=== PATIENT | male | born 1965 | race Caucasian/White ===

== ENCOUNTER 2017-03-16 15:18 | Emergency (ER) | payer MEDICAID ==
[~2017-03-16] VITALS: Ht 170.2 cm; Wt 89.3 kg
[~2017-03-16 15:18] MED LIST: CYCL-319 PO; HYDR-3498 PO; NAPR-260 PO
[2017-03-16 15:25] VITALS: Ht 170.2 cm; Wt 89.3 kg
[2017-03-16] MEDS ORDERED: KETOROLAC 30 MG INJ IV STA (16:24)
[2017-03-16] MEDS ORDERED: SOD CHLORIDE 0.9% 500 ML IV STA (16:24)
[2017-03-16] MEDS ORDERED: CEFTRIAXONE 1 GM/50 ML (PMX) 50 ML IVPB ONE (16:30)
[2017-03-16 17:13] LABS: BASOPHILS % 0.2 % (0.0-2.0); EOSINOPHILS # 0.1 10^3/ul (0.0-0.5); EOSINOPHILS % 0.5 % (0.0-7.0); HEMATOCRIT 46.6 % (42.0-52.0); LYMPHOCYTES # 0.8 10^3/ul (0.8-2.9); LYMPHOCYTES % 8.4 % (15.0-51.0); MEAN CORPUSCULAR HEMOGLOBIN 31.5 pg (29.0-33.0); MEAN CORPUSCULAR HGB CONC 34.3 g/dl (32.0-37.0); MEAN CORPUSCULAR VOLUME 91.7 fl (82.0-101.0); MEAN PLATELET VOLUME 10.2 fl (7.4-10.4); MONOCYTE # 1.2 10^3/ul (0.3-0.9); MONOCYTES % 12.2 % (0.0-11.0); NEUTROPHIL # 7.8 10^3/ul (1.6-7.5); NEUTROPHILS % 78.2 % (39.0-77.0); PLATELET COUNT 213 10^3/UL (140-415); RED BLOOD COUNT 5.08 10^6/ul (4.70-6.10); RED CELL DISTRIBUTION WIDTH 12.4 % (11.5-14.5)
--- NOTE | 2017-03-16 17:18 | RADRPT ---
PROCEDURE: XR Chest. CLINICAL INDICATION: Shortness of breath. TECHNIQUE: PA erect view of the chest was obtained. COMPARISON: 02/11/2015 FINDINGS: The cardiomediastinal silhouette is within normal limits. Infiltrate within the lingula is present unable to exclude pneumonia. The right lung is clear. There is no evidence for pleural effusion, pn eumothorax or pulmonary vascular congestion. The osseous structures are intact with no evidence for acute abnormality. RPTAT:HJJR IMPRESSION: Lingular infiltrate unable to exclude pneumonia in the proper clinical setting. Correlation with cou gh and fever is recommended. Consider short-term follow-up evaluation after therapy. Physician Krystyna Date Time Electronically viewed and signed by Physician Krystyna on 03/16/2017 17:17 /
[2017-03-16 17:21] LABS: ADD UMIC YES; UR ASCORBIC ACID NEGATIVE (NEGATIVE); UR BILIRUBIN (Dip) NEGATIVE (NEGATIVE); UR BLOOD (Dip) 3+ mg/dL (NEGATIVE); UR CLARITY CLEAR (CLEAR); UR COLOR YELLOW (YELLOW); UR GLUCOSE (Dip) NEGATIVE (NEGATIVE); UR KETONES (Dip) 1+ mg/dL (NEGATIVE); UR LEUKOCYTE ESTERASE (Dip) NEGATIVE Leu/ul (NEGATIVE); UR MUCUS FEW /HPF (NONE SEEN); UR NITRITE (Dip) NEGATIVE (NEGATIVE); UR RBC 26 /HPF (0-5); UR SPECIFIC GRAVITY (Dip) 1.019 (1.003-1.030); UR TOTAL PROTEIN (Dip) NEGATIVE (NEGATIVE); UR UROBILINOGEN (Dip) 1+ mg/dL (NEGATIVE)
[2017-03-16] MEDS ORDERED: ALBUTEROL/IPRATROPIUM (NEB) 3 ML AMP HHN STA (17:35)
[2017-03-16 17:38] LABS: CALCIUM 9.4 mg/dl (8.4-10.2); CREATININE 1.1 mg/dl (0.61-1.24); POTASSIUM 4.2 mmol/L (3.5-5.1)
--- NOTE | 2017-03-16 17:44 | ERD ---
ER Documentation Chief Complaint Chief Complaint chest pain, headache, neck pain radiating to left arm x2 days HPI 48 y/o male patient with no significant medical history, presents to the emergency department with his c/o gradual onset of fever, headache, cough sharp chest pain for the last 2 days. The pain is rated 6/10, radiated to his back. The symptoms are probably caused by a cold and are associated with general malaise. Aggravating factors: Exertion in cold weather. Alleviating factors: Resting. Denies palpitations, shortness of breath, dizziness, no chills , N/V/D. No history of previous episodes. Treatment attempted: Known. Previous evaluation: Known. History was given by patient ROS SYSTEMIC symptoms: fever, no chills, no night sweats, no weight loss EYE symptoms: No blurred vision, no eye discharge OTOLARYNGEAL symptoms: No hearing loss. No ear pain, no sore throat CARDIOVASCULAR symptoms: Sharp chest pain or discomfort, no palpitations. PULMONARY symptoms: No dyspnea, dry constant cough, no wheezing. GASTROINTESTINAL symptoms: No abdominal pain, no nausea, no vomiting, no diarrhea MUSCULOSKELETAL symptoms: No arthralgias, no muscle aches. NEUROLOGY symptoms: No confusion, no syncope, no numbness or tingling. SKIN: No rashes Medications Home Meds Active Scripts Ibuprofen* (Ibuprofen*) 600 Mg Tablet, 600 MG PO Q8 Y for pain and/or fever, # 20 TAB Prov:BELLE PUGH MD 03/16/17 Albuterol Sulfate* (Proair HFA*) 8.5 Gm Hfa.aer.ad, 2 PUFF INH Q6H Y for WHEEZING AND SOB, #1 INHALER Prov:BELLE PUGH MD 03/16/17 Azithromycin* (Zithromax*) 250 Mg Tablet, 250 MG PO .ZPACK DIRECTED, #6 TAB TAKE 500 MG (2 TABS) THE FIRST DAY THEN 250 MG (1 TAB) DAYS 2-5 Prov:BELLE PUGH MD 03/16/17 Amoxicillin/Potassium Clav (Amox-Clav 875-125 mg Tablet) 875-125 mg Tab, 1 TAB PO BID for 7 Days, #14 TAB Prov:BELLE PUGH MD 03/16/17 Hydrocodone Bit-Acetaminophen* ([place]*) 5-325 Mg Tab, 1 TAB PO Q6 Y for PAIN, # 11 TAB Prov:ENRRIQUE GAMEZ DO 02/11/15 Cyclobenzaprine Hcl* (Cyclobenzaprine Hcl*) 10 Mg Tablet, 10 MG PO TID, #15 TAB Prov:ENRRIQUE GAMEZ DO 02/11/15 Naproxen* (Naprosyn*) 500 Mg Tablet, 500 MG PO BID Y for PAIN AND/OR INFLAMMATION, #20 TAB Prov:ENRRIQUE GAMEZ DO 02/11/15 Allergies Allergies: Coded Allergies: No Known Allergy (Unverified , 02/11/15) PMhx/Soc Denies history of hypertension, diabetes, coronary artery disease. Hx Neurological Disorder: No Hx Respiratory Disorders: No Hx Cardiac Disorders: No Hx Psychiatric Problems: No Hx Miscellaneous Medical Probl: No Hx Alcohol Use: No Hx Substance Use: No Hx Tobacco Use: No Physical Exam Vitals Vital Signs Date Time Temp Pulse Resp B/P Pulse Ox O2 Delivery O2 Flow Rate FiO2 03/16/17 17:52 102 19 96 21 03/16/17 17:23 99.6 93 20 123/65 96 Room Air 03/16/17 16:57 Nasal Cannula 03/16/17 15:25 102.1 114 18 120/78 97 Physical Exam Patient is in mild distress, vital signs showed a tachycardic patient, febrile. Alert and fully oriented. EYES: PERRLA, EOMI, Sclera and conjunctiva appear normal. EARS: Bilateral tympanic membranes erythematous, opaque THROAT: Erythematous oropharynx. NECK: Supple, No lymphadenopathy. Full ROM without pain or tenderness. HEART: RRR, no rubs, murmurs, clicks or gallops. LUNGS: Bilateral rhonchi with left expiratory wheezing ABDOMEN: Soft, non-tender without masses or hepatosplenomegaly. EXTREMITIES: No edema bilaterally. BACK: Full ROM, no deformity, normal back exam NEURO: Cranial nerves grossly intact, no motor or sensory deficit Result Diagram: 03/16/17 1645 03/16/17 1645 Results 24 hrs Laboratory Tests Test 03/16/17 16:40 03/16/17 16:45 Urine Color YELLOW Urine Clarity CLEAR Urine pH 5.0 Urine Specific [place] 1.019 Urine Ketones 1+mg/dL Urine Nitrite NEGATIVEmg/dL Urine Bilirubin NEGATIVEmg/dL Urine Urobilinogen 1+mg/dL Urine Leukocyte Esterase NEGATIVELeu/ul Urine Microscopic RBC 26/HPF Urine Microscopic WBC 1/HPF Urine Mucus FEW/HPF Urine Hemoglobin 3+mg/dL Urine Glucose NEGATIVEmg/dL Urine Total Protein NEGATIVEmg/dl White Blood Count 10.010^3/ul Red Blood Count 5.0810^6/ul Hemoglobin 16.0g/dl Hematocrit 46.6% Mean Corpuscular Volume 91.7fl Mean Corpuscular Hemoglobin 31.5pg Mean Corpuscular Hemoglobin Concent 34.3g/dl Red Cell Distribution Width 12.4% Platelet Count 34404^3/UL Mean Platelet Volume 10.2fl Neutrophils % 78.2% Lymphocytes % 8.4% Monocytes % 12.2% Eosinophils % 0.5% Basophils % 0.2% Nucleated Red Blood Cells % 0.0/100WBC Neutrophils # 7.810^3/ul Lymphocytes # 0.810^3/ul Monocytes # 1.210^3/ul Eosinophils # 0.110^3/ul Basophils # 0.010^3/ul Nucleated Red Blood Cells # 0.010^3/ul Sodium Level 139mmol/L Potassium Level 4.2mmol/L Chloride Level 97mmol/L Carbon Dioxide Level 30mmol/L Anion Gap 16 Blood Urea Nitrogen 12mg/dl Creatinine 1.10mg/dl Glucose Level 104mg/dl Lactic Acid Level 1.3mmol/L Calcium Level 9.4mg/dl Current Medications Medications (Trade) Dose Ordered Sig/Keshia Route PRN Reason Start Time Stop Time Status Last Admin Dose Admin Sodium Chloride (NS) 500 ml @ 500 mls/hr Q1H STAT IV 03/16/17 16:24 03/16/17 17:23 DC 03/16/17 16:55 Ketorolac Tromethamine 30 mg 30 mg ONCE STAT IV 03/16/17 16:24 03/16/17 16:30 DC 03/16/17 16:55 Ceftriaxone Sodium (Rocephin) 50 ml @ 100 mls/hr ONCE ONCE IVPB 03/16/17 16:30 03/16/17 16:59 DC 03/16/17 16:57 Albuterol/ Ipratropium (Duoneb) 3 ml ONCE STAT HHN 03/16/17 17:35 03/16/17 17:36 DC 03/16/17 17:49 [place] [id number] Radiology Main Line: [phone] DIAGNOSTIC IMAGING REPORT Patient: GLORIA MOSQUEDA : 1965 Age: 51 Sex: M MR #: [id number] DOS: 03/16/17 1624 Ordering MD: BELLE PUGH MD Location: [facility]TE Room/Bed: PROCEDURE: XR Chest. CLINICAL INDICATION: Shortness of breath. TECHNIQUE: PA erect view of the chest was obtained. COMPARISON: 02/11/2015 FINDINGS: The cardiomediastinal silhouette is within normal limits. Infiltrate within the lingula is present unable to exclude pneumonia. The right lung is clear. There is no evidence for pleural effusion, pneumothorax or pulmonary vascular congestion. The osseous structures are intact with no evidence for acute abnormality. RPTAT:HJJR IMPRESSION: Lingular infiltrate unable to exclude pneumonia in the proper clinical setting. Correlation with cough and fever is recommended. Consider short-term follow-up evaluation after therapy. Physician Krystyna Date Time Electronically viewed and signed by Physician Krystyna on 03/16/2017 17:17 JR/ CC: BELLE PUGH MD Procedures/MDM 51y/o male patient previously healthy, presents to the ED c/o fever cough and general malaise for 3 days. Vital signs stable, Physical exam revealed a tachycardic patient, febrile, with abnormal respiratory sounds in left lung. Differential diagnosis include but not limited to: Respiratory infection bacterial/viral/fungal. Asthma/COPD, pneumonitis, allergies, GERD. Less likely foreign body aspiration, cardiac related, aspiration pneumonia, malignancy. Pertinent Data: 12 Lead ECG: Sinus rhythm, no ST changes, normal T wave, normal intervals Labs: CBC: normal, CMP: normal kidney and liver function, normal electrolytes. Lactic acid: 1.3 UA: Hematuria but no infection Radiology: Chest XR IMPRESSION: Lingular infiltrate unable to exclude pneumonia in the proper clinical setting. Correlation with cough and fever is recommended. Consider short-term follow-up evaluation after therapy. Physical examination and clinical presentation consistent most likely with lingular pneumonia and hematuria. During the ED course the patient received treatment with IV fluids, Rocephin, respiratory therapy and Toradol presenting overall improvement of the symptoms. Results and clinical impression discussed with patient who agrees with management. The patient is stable to be treated outpatient and will be discharged home with a Rx for Augmentin, azithromycin, pro-air and ibuprofen Side effects of prescribed medications (headache, rash, nausea, vomiting, diarrhea) were reviewed. Side effects of prescribed opiates (drowsiness, habituation) were reviewed. Side effects of prescribed NSAID medication (GI distress, edema, bleeding, HTN) were reviewed. The patient was instructed to follow up with the primary care provider in the next 48h. If symptoms persist, worsen or new symptoms develop, then patient should return to the ED immediately. Instructions explained and given to patient in [place] with acknowledgment and demonstrated understanding. Disclaimer: Inadvertent spelling and grammatical errors are likely due to EHR/ dictation software use and do not reflect on the overall quality of patient care. Also, please note that the electronic time recorded on this note does not necessarily reflect the actual time of the patient encounter. Departure Diagnosis: Primary Impression: Pneumonia Additional Impression: Hematuria Condition: Stable Additional Instructions: Muchas ronald por [facility] para gonzalez servicio. Esperamos que en gonzalez visita a la michael de emergencia gonzalez problema medico haya sido solucionado y que se sienta mucho mejor. Para estar seguros que gonzalez mejoria sigue en proceso, le pedimos el favor de hacer lori jennifer de seguimiento medico con gonzalez doctor primario en los proximos 2-4 gudino. Lleve con usted estos documentos y las medicinas recetadas. Si juan sintomas empeoran y no puede kiko a gonzalez doctor, por favor regrese a michael de emergencia. En bakari que usted no tenga un mdico de atencin primaria: Llame al mdico o clnica comunitaria de referencia que aparece abajo vera las horas de consultorio para hacer lori jennifer para que le vean. CLINICAS: [place] [id number] [phone] [facility] [phone] [facility] [phone] [facility]. [place] [id number] [phone] [facility]. [place] [id number] [phone] [facility]. [phone] BELLE LEONE MD Mar 16, 2017 17:44
[2017-03-16] MEDS ORDERED: AMOX1TAB10 PO (18:06)
[2017-03-16] MEDS ORDERED: IBUP-1542 PO (18:06)
[2017-03-16] MEDS ORDERED: AZIT250T94 PO (18:06)
[2017-03-16] MEDS ORDERED: ALBU8.5H3 INH (18:06)
[2017-03-16 19:41] VITALS: BP 125/72; PULSE 90; RESP 16; TEMP 99.1
== END 2017-03-16 19:45 | disposition home or self-care (01) ==
LOC: FTE 15:18
DX: J18.9 Pneumonia, unspecified organism (principal); R31.9 Hematuria, unspecified
CPT/HCPCS: 71010; 80048; 81001; 83605; 85025; 87040; 94664; J0696; J1885; J7040; Z7610; 36415; 96374; 96375

== ENCOUNTER 2017-04-19 16:19 | Emergency (ER) | END 2017-04-19 22:45 | disposition home or self-care (01) ==

== ENCOUNTER 2017-11-30 11:33 | Emergency (ER) | END 2017-11-30 15:08 | disposition home or self-care (01) ==

== ENCOUNTER 2018-06-25 10:12 | Inpatient (IN) | payer MEDICAID ==
[2018-06-25] VITALS (24 sets, daily range): BP systolic 92–127; BP diastolic 52–69; PULSE 72–90; RESP 14–21; Ht 167.6 cm; Wt 84.8 kg
[~2018-06-25] VITALS: Ht 167.6 cm; Wt 84.8 kg
[~2018-06-25 10:12] MED LIST changes: +ACET500C5 PO; +ALBU18HF INHALATION; +ALBU8.5H8 INH; +AMOX1TAB10 PO; +AZIT250T PO; -CYCL-319 PO; +CYCL10TA7 PO; +IBUP-1542 PO; +INHA1SPA53 MC; +IPRA15SP NS; -NAPR-260 PO; +NAPR-985 PO; +PRED20TA PO
[2018-06-25] MEDS ORDERED: SODIUM CHLORIDE 0.9% 1L BAG IV* STA (10:31)
[2018-06-25] MEDS ORDERED: ONDANSETRON 4 MG INJ IV STA ×2 (10:31→11:23)
[2018-06-25] MEDS ORDERED: morphine 4 MG/ML VIAL IV STA (10:31)
[2018-06-25] MEDS ORDERED: PIPER-TAZO 3.375 GM IV (PMX) 100 ML IVPB STA (10:31)
[2018-06-25] MEDS ORDERED: ACETAMINOPHEN 325 MG TAB PO STA (10:31)
[2018-06-25] MEDS ORDERED: HYDROmorphONE 1 MG/ML SYG IV STA (11:23)
--- NOTE | 2018-06-25 11:54 | ERD ---
ER Documentation Chief Complaint Chief Complaint Right lower abdominal pain, no BM 2 days HPI 52-year-old gentleman who presents to the emergency room with 24 hours of right lower quadrant abdominal discomfort. Patient describes generalized vague pain that is now localized to the right lower quadrant with associated anorexia, naus ea. Pain is 9 out of 10. Low-grade fever noted at triage. Prior abdominal surgical histories. ROS All systems reviewed and are negative except as per history of present illness. Medications Home Meds Active Scripts Cyclobenzaprine Hcl* (Cyclobenzaprine Hcl*) 10 Mg Tablet, 10 MG PO QHS, #7 TAB Prov:OSKAR NATHAN PA-C 11/30/17 Prednisone* (Prednisone*) 20 Mg Tab, 40 MG PO DAILY for 4 Days, TAB Prov:OSKAR NATHAN PA-C 11/30/17 Naproxen* (Naprosyn*) 500 Mg Tablet, 500 MG PO BID PRN for PAIN AND/OR INFLAMMATION, #30 TAB Prov:OSKAR NATHAN PA-C 11/30/17 Ipratropium [place] (Ipratropium [place]) 15 Ml [place], 15 ML NS TID for 7 Days, SPRAY Prov:JOSEFINA,TERA 04/19/17 Ibuprofen* (Motrin*) 600 Mg Tab, 600 MG PO Q6, #30 TAB Prov:JOSEFINA,TERA 04/19/17 Acetaminophen* (Tylophen*) 500 Mg Capsule, 2 CAP PO Q8H PRN for PAIN AND OR ELEVATED TEMP, #20 CAP Prov:JOSEFINA,TERA 04/19/17 Inhaler, Assist Devices (E-Z SPACER) 1 Each Spacer, 1 EACH MC, #1 Prov:JOSEFINA,TERA 04/19/17 Albuterol Sulfate* (Ventolin HFA*) 18 Gm Hfa.aer.ad, 2 PUFF INHALATION Q4H, #1 INHALER Prov:JOSEFINA,TERA 04/19/17 Ibuprofen* (Ibuprofen*) 600 Mg Tablet, 600 MG PO Q8 PRN for pain and/or fever, #20 TAB Prov:BELLE PUGH MD 03/16/17 Albuterol Sulfate* (Proair HFA*) 8.5 Gm Hfa.aer.ad, 2 PUFF INH Q6H PRN for WHEEZING AND SOB, #1 INHALER Prov:BELLE PUGH MD 03/16/17 Azithromycin* (Zithromax*) 250 Mg Tablet, 250 MG PO .ZPACK DIRECTED, #6 TAB TAKE 500 MG (2 TABS) THE FIRST DAY THEN 250 MG (1 TAB) DAYS 2-5 Prov:BELLE PUGH MD 03/16/17 Amoxicillin/Potassium Clav (Amox-Clav 875-125 mg Tablet) 875-125 mg Tab, 1 TAB PO BID for 7 Days, #14 TAB Prov:BELLE PUGH MD 03/16/17 Hydrocodone Bit-Acetaminophen* ([place]*) 5-325 Mg Tab, 1 TAB PO Q6 PRN for PAIN, #11 TAB Prov:ENRRIQUE GAMEZ DO 02/11/15 Cyclobenzaprine Hcl* (Cyclobenzaprine Hcl*) 10 Mg Tablet, 10 MG PO TID, #15 TAB Prov:ENRRIQUE GAMEZ DO 02/11/15 Naproxen* (Naprosyn*) 500 Mg Tablet, 500 MG PO BID PRN for PAIN AND/OR I NFLAMMATION, #20 TAB Prov:ENRRIQUE GAMEZ DO 02/11/15 Allergies Allergies: Coded Allergies: No Known Allergy (Unverified , 02/11/15) PMhx/Soc Medical and Surgical Hx: pt denies Medical Hx, pt denies Surgical Hx History of Surgery: No Anesthesia Reaction: No Hx Neurological Disorder: No Hx Respiratory Disorders: No Hx Cardiac Disorders: No Hx Psychiatric Problems: No Hx Miscellaneous Medical Probl: No Hx Alcohol Use: No Hx Substance Use: No Hx Tobacco Use: No Smoking Status: Never smoker FmHx Family History: No diabetes Physical Exam Vitals Vital Signs Date Temp Pulse Resp B/P (MAP) Pulse Ox O2 O2 Flow FiO2 Time Delivery Rate 06/25/18 99.7 81 16 124/75 100 Room Air 11:55 (91) 06/25/18 100.4 10:49 06/25/18 Nasal 2 10:30 Cannula 06/25/18 100.2 98 18 112/52 98 10:15 (72) Physical Exam General: Uncomfortable Head: Normocephalic, atraumatic. Eyes: Pupils equally reactive, EOM intact ENT: Moist mucous membranes Neck: Supple, no lymphadenopathy Respiratory: Lungs clear bilaterally, no distress Cardiovascular: Tachycardia, no murmurs, rubs, or gallops Abdominal: Focal tenderness to the right lower quadrant at McBurney's point with voluntary guarding : Deferred MSK: No edema, no unilateral swelling, 5/5 strength Neurologic: Alert and oriented, moving all extremities, normal speech, no focal weakness, no cerebellar signs Skin: No rash Psych: Normal mood Result Diagram: 06/25/18 1042 06/25/18 1042 Results 24 hrs Laboratory Tests Test 06/25/18 10:42 06/25/18 12:16 White Blood Count 15.8 10^3/ul Red Blood Count 5.05 10^6/ul Hemoglobin 15.9 g/dl Hematocrit 46.5 % Mean Corpuscular Volume 92.1 fl Mean Corpuscular Hemoglobin 31.5 pg Mean Corpuscular Hemoglobin Concent 34.2 g/dl Red Cell Distribution Width 12.3 % Platelet Count 249 10^3/UL Mean Platelet Volume 10.5 fl Immature Granulocytes % 0.800 % Neutrophils % 85.7 % Lymphocytes % 4.7 % Monocytes % 8.6 % Eosinophils % 0.0 % Basophils % 0.2 % Nucleated Red Blood Cells % 0.0 /100WBC Immature Granulocytes # 0.130 10^3/ul Neutrophils # 13.5 10^3/ul Lymphocytes # 0.7 10^3/ul Monocytes # 1.4 10^3/ul Eosinophils # 0.0 10^3/ul Basophils # 0.0 10^3/ul Nucleated Red Blood Cells # 0.0 10^3/ul Prothrombin Time 13.3 Sec Prothrombin Time Ratio 1.0 INR International Normalized Ratio 1.00 Activated Partial Thromboplast Time 31.2 Sec Urine Color STRAW Urine Clarity CLEAR Urine pH 8.0 Urine Specific [place] 1.003 Urine Ketones NEGATIVE mg/dL Urine Nitrite NEGATIVE mg/dL Urine Bilirubin NEGATIVE mg/dL Urine Urobilinogen NEGATIVE mg/dL Urine Leukocyte Esterase NEGATIVE [place]/ul Urine Microscopic RBC 2 /HPF Urine Microscopic WBC 1 /HPF Urine Hemoglobin 2+ mg/dL Urine Glucose NEGATIVE mg/dL Urine Total Protein NEGATIVE mg/dl Sodium Level 137 mmol/L Potassium Level 3.7 mmol/L Chloride Level 96 mmol/L Carbon Dioxide Level 25 mmol/L Anion Gap 16 Blood Urea Nitrogen 9 mg/dl Creatinine 0.86 mg/dl Est Glomerular Filtrat Rate mL/min > 60 mL/min Glucose Level 148 mg/dl Lactic Acid Level 4.6 mmol/L 1.6 mmol/L Calcium Level 9.1 mg/dl Total Bilirubin 1.6 mg/dl Direct Bilirubin 0.00 mg/dl Indirect Bilirubin 1.6 mg/dl Aspartate Amino Transf (AST/SGOT) 23 IU/L Alanine Aminotransferase (ALT/SGPT) 27 IU/L Alkaline Phosphatase 82 IU/L Total Protein 7.8 g/dl Albumin 4.3 g/dl Globulin 3.50 g/dl Albumin/Globulin Ratio 1.22 Lipase 219 U/L Current Medications Medications Dose Sig/Keshia Start Time Status Last (Trade) Ordered Route PRN Stop Time Admin Dose Reason Admin Sodium 2,730 ml BOLUS OVER 2 06/25/18 DC 06/25/18 Chloride HOURS STAT 10:31 06/25/18 10:44 (NS) IV* 10:33 650 mg ONCE STAT 06/25/18 DC 06/25/18 Acetaminophen PO 10:31 06/25/18 10:49 (Tylenol 10:33 Tab) Morphine 4 mg ONCE STAT 06/25/18 DC 06/25/18 Sulfate IV 10:31 06/25/18 10:46 (morphine) 10:33 Ondansetron 4 mg ONCE STAT 06/25/18 DC 06/25/18 HCl (Zofran IV 10:31 06/25/18 10:46 Inj) 10:33 Piperacillin 100 ml @ ONCE STAT 06/25/18 DC 06/25/18 Sod/ 200 mls/hr IVPB 10:31 06/25/18 10:46 Tazobactam 11:00 Sod 1 mg ONCE STAT 06/25/18 DC 06/25/18 Hydromorphone IV 11:23 06/25/18 11:33 HCl 11:24 (Dilaudid) Ondansetron 4 mg ONCE STAT 06/25/18 DC 06/25/18 HCl (Zofran IV 11:23 06/25/18 11:33 Inj) 11:24 Ondansetron 4 mg ER BRIDGE 06/25/18 HCl (Zofran PRN IV 12:00 06/26/18 Inj) NAUSEA/VOMITI 11:59 NG 650 mg ER BRIDGE 06/25/18 Acetaminophen PRN PO 12:00 06/26/18 (Tylenol .MILD PAIN 11:59 Tab) 1-3 OR TEMP IV Flush 3 ml PER 06/25/18 (NS 3 ml) PROTOCOL IV 13:00 Ondansetron 4 mg Q6H PRN 06/25/18 HCl (Zofran IV 13:00 Inj) NAUSEA/VOMITI NG 650 mg Q6H PRN 06/25/18 Acetaminophen PO .PAIN 1-3 13:00 (Tylenol OR TEMP Tab) 1 tab Q6H PRN 06/25/18 Acetaminophen PO .MOD PAIN 13:00 / 4-6 Hydrocodone Bitart ([place] (5/325)) Morphine 2 mg Q4H PRN 06/25/18 Sulfate IV .SEVERE 13:00 (morphine) PAIN 7-10 Docusate 100 mg Q12H PRN 06/25/18 Sodium PO 13:00 (Colace) .CONSTIPATION Magnesium 30 ml DAILY PRN 06/25/18 Hydroxide PO 13:00 (Milk Of Mag) .CONSTIPATION Heparin 5,000 unit Q12 SC 06/25/18 Sodium 21:00 (Porcine) (Heparin (5000 Units/1ml)) Sodium 1,000 ml @ [id number] IV 06/25/18 Chloride 75 mls/hr 12:41 Lorazepam 0.5 mg Q6H PRN 06/25/18 (Ativan) IV ANXIETY 13:00 Albuterol/ 3 ml Q4H RESP 06/25/18 Ipratropium THERAPY PRN 13:00 (Duoneb) HHN SHORTNESS OF BREATH Piperacillin 100 ml @ Q6 IVPB 06/25/18 Sod/ 200 mls/hr 18:00 Tazobactam Sod Hydralazine 10 mg Q6H PRN 06/25/18 HCl IV ELEVATED 13:00 (Apresoline) BLOOD PRESSURE 1 tab Q5M PRN 06/25/18 Nitroglycerin SL ANGINA 13:00 (Nitroglyceri n (Sl Tab) 0.4 Mg) Albuterol 2 puff Q6H PRN 06/25/18 (Ventolin INH WHEEZING 13:00 Hfa) AND SOB Procedures/MDM EKG, MONITORS, & DIAGNOSTIC IMAGING: EKG: I reviewed and interpreted a 12-lead EKG. Rhythm: Normal sinus rhythm ST Changes: No contiguous ST segment elevations T waves: No contiguous T wave inversions Impression: No evidence of acute cardiac ischemia CXR IMPRESSION: No evidence of congestive heart or pneumonia. RPTAT:AAJJ CT abdomen and pelvis: 1. Acute appendicitis as described above without free air abscess. 2. Bilateral nonobstructing small renal calcified calculi more numerous on the left. 3. No obstructive uropathy bilaterally. 4. Anterior mid left renal 1.7 cm cyst. 5. Umbilical and left inguinal fat-containing hernias without herniated bowel or strangulation. Addendum: Dr. Amin that was telephoned of these results on 06/25/2018 and 1110 hours. LAB INTERPRETATION: I reviewed the laboratory testing and it shows leukocytosis and lactic acid elevation MEDICAL DECISION MAKING: Patient presents with migratory pain to the right lower quadrant, anorexia and fever. This is very consistent with acute appendicitis. The patient also may meet criteria for sepsis. Sepsis screening to be initiated. Code sepsis initiated. ER COURSE: * Blood cultures prior to antibiotics. Zosyn provided. Antibiotics provided * The patient's lactic acid is significantly elevated consistent with severe sepsis and potential for septic shock. The patient's blood pressure is holding stable. No indication for central line or pressors. This is likely to respond with fluid resuscitation. * CT imaging confirms acute appendicitis. General surgeon communications coordinator, Dr. Crespo notified. * The patient's repeat lactic acid is pending. I do not believe the patient requires central line. CONSULTATION: General surgery: Dr. Crespo DISPOSITION PLAN: Patient can be downgraded to [facility] given improved lactic acid Accepting care team and consultations: I discussed the current laboratory data, diagnostic imaging and emergency care provided. Admitting team: Dr. Persaud Admitting team indication: Insurance directed Sepsis Documentation: Patient's infectious symptoms have not stabilized and the patient is at risk of rapid decompensation. The patient will be admitted for careful hydration, antibiotic therapy, and infectious source control. SEVERE SEPSIS CRITERIA: Infectious source: Acute appendicitis End organ damage indicated by: [Lactate > 2.0 mmol/L SEPSIS MANAGEMENT Time of recognition of sepsis: Upon MD assessment. Time of recognition of severe sepsis: Upon the lactic acid result around 11:15 AM Time of recognition of septic shock: Upon lactic acid result around 11:15 AM. 3 HOUR BUNDLE Blood cultures x 2 before broad-spectrum antibiotics: Yes 30 ml/kg NS bolus pending completion at 11:51 AM, almost complete Initial lactate greater than 4 Repeat lactate 1.6 SEPTIC SHOCK ASSESSMENT: Yes: lactic acid > 4.0 No persistent hypotension (SBP < 90 or 40 mmHg drop, MAP < 65) despite 30 mL/kg IV fluid bolus VOLUME REASSESSMENT FOR SEPTIC SHOCK: Reevaluation Time: 12:55 PM Temperature of 99.7 heart rate 81 respiratory rate 16 blood pressure 124/75 and pulse ox 100% on room air Heart regular rate & rhythm Lungs no crackles Skin warm & dry Cap Refill less than 2 seconds Peripheral pulses radially present PERSISTENT HYPOTENSION TREATMENT: Comfort care no Central line not Required Vasopressor started not required I considered further perfusion assessment with CVP measurement, SCVO2, bedside ultrasound volume assessment, passive leg raise, trial of further fluid bolus. And proceeded with 30 ml/kg fluid bolus of NSS, broad spectrum antibiotics, and admission. CRITICAL CARE Critical care time 40 minutes Emergent fluid management while maintaining close respiratory support. Provision of immediate and broad-spectrum antibiotic therapy. Simultaneous assessment for possible sources in order to direct targeted therapy. Consideration for invasive and chemical support to prevent cardiopulmonary collapse. Critical care time is independent of procedures performed. Departure Diagnosis: Primary Impression: Abdominal pain Abdominal location: right lower quadrant Qualified Codes: R10.31 - Right lower quadrant pain Additional Impressions: Acute appendicitis Acute appendicitis type: with localized peritonitis Appendicitis gangrene presence: without gangrene Appendicitis perforation presence: without perforation Appendicitis abscess presence: without abscess Qualified Codes: K35.30 - Acute appendicitis with localized peritonitis, without perforation or gangrene Septic shock Condition: Stable SANDRA AMIN MD Jun 25, 2018 11:54
[2018-06-25] MEDS ORDERED: ACETAMINOPHEN 325 MG TAB PO PRN ×2 (12:00→13:00)
[2018-06-25] MEDS ORDERED: ONDANSETRON 4 MG INJ IV PRN ×5 (12:00→18:30)
[2018-06-25] MEDS: SOD CHLORIDE 0.45% 1,000 ML IV SCH ×2 (12:41→21:00)
[2018-06-25] MEDS ORDERED: NITROGLYCERIN (SL) 0.4 MG TAB SL PRN (13:00)
[2018-06-25] MEDS ORDERED: NACL 0.9% 3 ML SYG IV SCH (13:00)
[2018-06-25] MEDS ORDERED: HYDROCODONE/APAP (5/325) TAB PO PRN (13:00)
[2018-06-25] MEDS ORDERED: MAGNESIUM HYDROXIDE 30ML CUP PO PRN (13:00)
[2018-06-25] MEDS ORDERED: LORAZEPAM 2 MG INJ IV PRN (13:00)
[2018-06-25] MEDS ORDERED: ALBUTEROL HFA 8 GM INHALER INH PRN (13:00)
[2018-06-25] MEDS ORDERED: hydrALAzine 20 MG INJ IV PRN ×2 (13:00→18:30)
[2018-06-25] MEDS ORDERED: ALBUTEROL/IPRATROPIUM (NEB) 3 ML AMP HHN PRN (13:00)
--- NOTE | 2018-06-25 14:36 | HP ---
Date/Time of Note Date/Time of Note DATE: 06/25/18 TIME: 14:34 Assessment/Plan VTE Prophylaxis SCD applied (from Nsg): No SCD contraindicated: other Pharmacological prophylaxis: heparin Lines/Catheters IV Catheter Type (from Nrsg): [place] Assessment/Plan Hospital Course Assessment and plan: 52-year-old male who presents with abdominal pain secondary to acute appendicitis. #Abdominal pain: Secondary to acute appendicitis. -Continue n.p.o. status, IV fluids, low-dose IV antibiotic -Follow-up surgery recommendations #Possible asthma: DuoNeb's as needed Result Diagram: 06/25/18 1042 06/25/18 1042 Results 24hrs Laboratory Tests Test 06/25/18 10:42 06/25/18 12:16 White Blood Count 15.8 #H Red Blood Count 5.05 Hemoglobin 15.9 Hematocrit 46.5 Mean Corpuscular Volume 92.1 Mean Corpuscular Hemoglobin 31.5 Mean Corpuscular Hemoglobin Concent 34.2 Red Cell Distribution Width 12.3 Platelet Count 249 Mean Platelet Volume 10.5 H Immature Granulocytes % 0.800 H Neutrophils % 85.7 H Lymphocytes % 4.7 L Monocytes % 8.6 Eosinophils % 0.0 Basophils % 0.2 Nucleated Red Blood Cells % 0.0 Immature Granulocytes # 0.130 H Neutrophils # 13.5 H Lymphocytes # 0.7 L Monocytes # 1.4 H Eosinophils # 0.0 Basophils # 0.0 Nucleated Red Blood Cells # 0.0 Prothrombin Time 13.3 Prothrombin Time Ratio 1.0 INR International Normalized Ratio 1.00 Activated Partial Thromboplast Time 31.2 Urine Color STRAW Urine Clarity CLEAR Urine pH 8.0 Urine Specific [place] 1.003 Urine Ketones NEGATIVE Urine Nitrite NEGATIVE Urine Bilirubin NEGATIVE Urine Urobilinogen NEGATIVE Urine Leukocyte Esterase NEGATIVE Urine Microscopic RBC 2 Urine Microscopic WBC 1 Urine Hemoglobin 2+ H Urine Glucose NEGATIVE Urine Total Protein NEGATIVE Sodium Level 137 Potassium Level 3.7 Chloride Level 96 L Carbon Dioxide Level 25 Anion Gap 16 H Blood Urea Nitrogen 9 Creatinine 0.86 Est Glomerular Filtrat Rate mL/min > 60 Glucose Level 148 Lactic Acid Level 4.6 *H 1.6 Calcium Level 9.1 Total Bilirubin 1.6 H Direct Bilirubin 0.00 Indirect Bilirubin 1.6 H Aspartate Amino Transf (AST/SGOT) 23 Alanine Aminotransferase (ALT/SGPT) 27 Alkaline Phosphatase 82 Total Protein 7.8 Albumin 4.3 Globulin 3.50 H Albumin/Globulin Ratio 1.22 Lipase 219 Free Thyroxine 1.14 HPI/ROS Admit Date/Time Admit Date/Time Hx of Present Illness 52-year-old male past medical history of questionable asthma, who complains of right lower quadrant abdominal pain. Symptoms have been going on for the last 24 hours. Patient describes generalized vague pain that is now localized to the right lower quadrant with associated anorexia, nausea. Patient stated the pain was 9 out of 10 in intensity. When the patient came in low-grade fever noted at triage. No prior history of any surgeries, no upper or lower GI bleeding, diarrhea constipation, headaches or dizziness. When he came in today he had CT scan abdomen pelvis performed that showed acute appendicitis as described above without free air abscess. Surgery team was called to come consult on the patient PMH/Family/Social Past Medical History Medications Current Medications Ondansetron HCl (Zofran Inj) 4 mg ER BRIDGE PRN IV NAUSEA/VOMITING; Start 06/25/18 at 12:00; Stop 06/26/18 at 11:59 Acetaminophen (Tylenol Tab) 650 mg ER BRIDGE PRN PO .MILD PAIN 1-3 OR TEMP; Start 06/25/18 at 12:00; Stop 06/26/18 at 11:59 IV Flush (NS 3 ml) 3 ml PER PROTOCOL IV ; Start 06/25/18 at 13:00 Ondansetron HCl (Zofran Inj) 4 mg Q6H PRN IV NAUSEA/VOMITING; Start 06/25/18 at 13:00 Acetaminophen (Tylenol Tab) 650 mg Q6H PRN PO .PAIN 1-3 OR TEMP; Start 06/25/18 at 13:00 Acetaminophen/ Hydrocodone Bitart ([place] (5/325)) 1 tab Q6H PRN PO .MOD PAIN 4- 6; Start 06/25/18 at 13:00 Morphine Sulfate (morphine) 2 mg Q4H PRN IV .SEVERE PAIN 7-10; Start 06/25/18 at 13:00 Docusate Sodium (Colace) 100 mg Q12H PRN PO .CONSTIPATION; Start 06/25/18 at 13:00 Magnesium Hydroxide (Milk Of Mag) 30 ml DAILY PRN PO .CONSTIPATION; Start at 13:00 Heparin Sodium (Porcine) (Heparin (5000 Units/1ml)) 5,000 unit Q12 SC ; Start 06/25/18 at 21:00 Sodium Chloride 1,000 ml @ 75 mls/hr [id number] IV ; Start 06/25/18 at 12:41 Lorazepam (Ativan) 0.5 mg Q6H PRN IV ANXIETY; Start 06/25/18 at 13:00 Albuterol/ Ipratropium (Duoneb) 3 ml Q4H RESP THERAPY PRN HHN SHORTNESS OF BREATH; Start 06/25/18 at 13:00 Piperacillin Sod/ Tazobactam Sod 100 ml @ 200 mls/hr Q6 IVPB ; Start 06/25/18 at 18:00 Hydralazine HCl (Apresoline) 10 mg Q6H PRN IV ELEVATED BLOOD PRESSURE; Start 06/25/18 at 13:00 Nitroglycerin (Nitroglycerin (Sl Tab) 0.4 Mg) 1 tab Q5M PRN SL ANGINA; Start 06/25/18 at 13:00 Albuterol (Ventolin Hfa) 2 puff Q6H PRN INH WHEEZING AND SOB; Start 06/25/18 at 13:00 Coded Allergies: No Known Allergy (Unverified , 02/11/15) Past Surgical History Past Surgical Hx: no surgical history Social History Alcohol Use: none Smoking Status: Never smoker Drug Use: none Exam/Review of Systems Vital Signs Vitals Vital Signs Date Temp Pulse Resp B/P (MAP) Pulse Ox O2 O2 Flow FiO2 Time Delivery Rate 06/25/18 80 16 121/73 99 Room Air 13:34 (89) 06/25/18 99.7 11:55 06/25/18 2 10:30 Exam Exam General: Lying in bed, mild distress Head: Normocephalic, atraumatic. Eyes: Pupils equally reactive, EOM intact ENT: Moist mucous membranes Neck: Supple, no lymphadenopathy Respiratory: Lungs clear bilaterally, no distress Cardiovascular: S1, S2 heard Abdominal: Some positive tenderness to the right lower quadrant with voluntary guarding MSK: No edema lower extremity bilaterally Neurologic: No focal deficits CHRISTIANO CRANDALL Jun 25, 2018 14:36
--- NOTE | 2018-06-25 15:17 | CONS ---
Assessment/Plan Assessment/Plan Assessment/Plan (Daily) Acute appendicitis Laparoscopic appendectomy, possible open. I have discussed the procedure, outcomes, alternatives and risks in detail with the patient who has an excellent understanding of the nature of his situation and agrees to the proposed plan of therapy as outlined. Consultation Date/Type/Reason Admit Date/Time Date of Consultation: Jun 25, 2018 Type of Consult General surgery Reason for Consultation Acute appendicitis Date/Time of Note DATE: 06/25/18 TIME: 15:15 Hx of Present Illness The patient is an otherwise healthy 52-year-old gentleman who presents with a one day history of abdominal pain which intensified in severity than localized to the right lower quadrant. In the emergency room he was noted to have a tender right lower quadrant, an elevated white blood cell count, and a CT compatible with acute appendicitis. Constitutional: no complaints Eyes: no complaints ENT: no complaints Respiratory: no complaints Cardiovascular: no complaints Gastrointestinal: pain (Right lower quadrant) Genitourinary: no complaints Musculoskeletal: no complaints Skin: no complaints Neurologic: no complaints Endocrine: no complaints Lymphatic: no complaints Past Medical History Medical History: no pertinent history Home Meds Active Scripts Cyclobenzaprine Hcl* (Cyclobenzaprine Hcl*) 10 Mg Tablet, 10 MG PO QHS, #7 TAB Prov:OSKAR NATHAN PA-C 11/30/17 Prednisone* (Prednisone*) 20 Mg Tab, 40 MG PO DAILY for 4 Days, TAB Prov:OSKAR NATHAN PA-C 11/30/17 Naproxen* (Naprosyn*) 500 Mg Tablet, 500 MG PO BID PRN for PAIN AND/OR INFLAMMATION, #30 TAB Prov:OSKAR NATHAN PA-C 11/30/17 Ipratropium [place] (Ipratropium [place]) 15 Ml [place], 15 ML NS TID for 7 Days, SPRAY Prov:JOSEFINA,TERA 04/19/17 Ibuprofen* (Motrin*) 600 Mg Tab, 600 MG PO Q6, #30 TAB Prov:JOSEFINA,TERA 04/19/17 Acetaminophen* (Tylophen*) 500 Mg Capsule, 2 CAP PO Q8H PRN for PAIN AND OR ELEVATED TEMP, #20 CAP Prov:JOSEFINA,TERA 04/19/17 Inhaler, Assist Devices (E-Z SPACER) 1 Each Spacer, 1 EACH MC, #1 Prov:JOSEFINA,TERA 04/19/17 Albuterol Sulfate* (Ventolin HFA*) 18 Gm Hfa.aer.ad, 2 PUFF INHALATION Q4H, #1 INHALER Prov:JOSEFINA,TERA 04/19/17 Ibuprofen* (Ibuprofen*) 600 Mg Tablet, 600 MG PO Q8 PRN for pain and/or fever, #20 TAB Prov:BELLE PUGH MD 03/16/17 Albuterol Sulfate* (Proair HFA*) 8.5 Gm Hfa.aer.ad, 2 PUFF INH Q6H PRN for WHEEZING AND SOB, #1 INHALER Prov:BELLE PUGH MD 03/16/17 Azithromycin* (Zithromax*) 250 Mg Tablet, 250 MG PO .ZPACK DIRECTED, #6 TAB TAKE 500 MG (2 TABS) THE FIRST DAY THEN 250 MG (1 TAB) DAYS 2-5 Prov:BELLE PUGH MD 03/16/17 Amoxicillin/Potassium Clav (Amox-Clav 875-125 mg Tablet) 875-125 mg Tab, 1 TAB P O BID for 7 Days, #14 TAB Prov:BELLE PUGH MD 03/16/17 Hydrocodone Bit-Acetaminophen* ([place]*) 5-325 Mg Tab, 1 TAB PO Q6 PRN for PAIN, #11 TAB Prov:ENRRIQUE GAMEZ DO 02/11/15 Cyclobenzaprine Hcl* (Cyclobenzaprine Hcl*) 10 Mg Tablet, 10 MG PO TID, #15 TAB Prov:ENRRIQUE GAMEZ DO 02/11/15 Naproxen* (Naprosyn*) 500 Mg Tablet, 500 MG PO BID PRN for PAIN AND/OR INFLAMMATION, #20 TAB Prov:ENRRIQUE GAMEZ DO 02/11/15 Medications Current Medications Ondansetron HCl (Zofran Inj) 4 mg ER BRIDGE PRN IV NAUSEA/VOMITING; Start 06/25/18 at 12:00; Stop 06/26/18 at 11:59 Acetaminophen (Tylenol Tab) 650 mg ER BRIDGE PRN PO .MILD PAIN 1-3 OR TEMP; Start 06/25/18 at 12:00; Stop 06/26/18 at 11:59 IV Flush (NS 3 ml) 3 ml PER PROTOCOL IV ; Start 06/25/18 at 13:00 Ondansetron HCl (Zofran Inj) 4 mg Q6H PRN IV NAUSEA/VOMITING; Start 06/25/18 at 13:00 Acetaminophen (Tylenol Tab) 650 mg Q6H PRN PO .PAIN 1-3 OR TEMP; Start 06/25/18 at 13:00 Acetaminophen/ Hydrocodone Bitart ([place] (5/325)) 1 tab Q6H PRN PO .MOD PAIN 4- 6; Start 06/25/18 at 13:00 Morphine Sulfate (morphine) 2 mg Q4H PRN IV .SEVERE PAIN 7-10; Start 06/25/18 at 13:00 Docusate Sodium (Colace) 100 mg Q12H PRN PO .CONSTIPATION; Start 06/25/18 at 13:00 Magnesium Hydroxide (Milk Of Mag) 30 ml DAILY PRN PO .CONSTIPATION; Start 06/25/18 at 13:00 Heparin Sodium (Porcine) (Heparin (5000 Units/1ml)) 5,000 unit Q12 SC ; Start 06/25/18 at 21:00 Sodium Chloride 1,000 ml @ 75 mls/hr [id number] IV ; Start 06/25/18 at 12:41 Lorazepam (Ativan) 0.5 mg Q6H PRN IV ANXIETY; Start 06/25/18 at 13:00 Albuterol/ Ipratropium (Duoneb) 3 ml Q4H RESP THERAPY PRN HHN SHORTNESS OF BREATH; Start 06/25/18 at 13:00 Piperacillin Sod/ Tazobactam Sod 100 ml @ 200 mls/hr Q6 IVPB ; Start 06/25/18 at 18:00 Hydralazine HCl (Apresoline) 10 mg Q6H PRN IV ELEVATED BLOOD PRESSURE; Start 06/25/18 at 13:00 Nitroglycerin (Nitroglycerin (Sl Tab) 0.4 Mg) 1 tab Q5M PRN SL ANGINA; Start 06/25/18 at 13:00 Albuterol (Ventolin Hfa) 2 puff Q6H PRN INH WHEEZING AND SOB; Start 06/25/18 at 13:00 Allergies: Coded Allergies: No Known Allergy (Unverified , 02/11/15) Past Surgical History Past Surgical Hx: no surgical history Family History Significant Family History: no pertinent family hx Social History Smoking Status: Never smoker Exam/Review of Systems Exam Vitals Vital Signs Date Temp Pulse Resp B/P (MAP) Pulse Ox O2 O2 Flow FiO2 Time Delivery Rate 06/25/18 98.1 90 20 127/69 94 Room Air 15:06 (88) 06/25/18 2 10:30 Constitutional: alert, oriented Psych: no complaints Head: normocephalic Eyes: nl conjunctiva ENMT: nl external ears & nose Neck: supple Respiratory: clear to auscultation Cardiovascular: regular rate and rhythm Gastrointestinal: tender (Tender right lower quadrant with guarding but no rebound) Genitourinary - Male: nl penis Musculoskeletal: nl extremities to inspection Extremities: normal pulses Neurological: ROUSTABOUT II-XII intact Skin: nl turgor Results Result Diagram: 06/25/18 1042 06/25/18 1042 Results 24hrs Laboratory Tests Test 06/25/18 10:42 06/25/18 12:16 White Blood Count 15.8 #H Red Blood Count 5.05 Hemoglobin 15.9 Hematocrit 46.5 Mean Corpuscular Volume 92.1 Mean Corpuscular Hemoglobin 31.5 Mean Corpuscular Hemoglobin Concent 34.2 Red Cell Distribution Width 12.3 Platelet Count 249 Mean Platelet Volume 10.5 H Immature Granulocytes % 0.800 H Neutrophils % 85.7 H Lymphocytes % 4.7 L Monocytes % 8.6 Eosinophils % 0.0 Basophils % 0.2 Nucleated Red Blood Cells % 0.0 Immature Granulocytes # 0.130 H Neutrophils # 13.5 H Lymphocytes # 0.7 L Monocytes # 1.4 H Eosinophils # 0.0 Basophils # 0.0 Nucleated Red Blood Cells # 0.0 Prothrombin Time 13.3 Prothrombin Time Ratio 1.0 INR International Normalized Ratio 1.00 Activated Partial Thromboplast Time 31.2 Urine Color STRAW Urine Clarity CLEAR Urine pH 8.0 Urine Specific [place] 1.003 Urine Ketones NEGATIVE Urine Nitrite NEGATIVE Urine Bilirubin NEGATIVE Urine Urobilinogen NEGATIVE Urine Leukocyte Esterase NEGATIVE Urine Microscopic RBC 2 Urine Microscopic WBC 1 Urine Hemoglobin 2+ H Urine Glucose NEGATIVE Urine Total Protein NEGATIVE Sodium Level 137 Potassium Level 3.7 Chloride Level 96 L Carbon Dioxide Level 25 Anion Gap 16 H Blood Urea Nitrogen 9 Creatinine 0.86 Est Glomerular Filtrat Rate mL/min > 60 Glucose Level 148 Lactic Acid Level 4.6 *H 1.6 Calcium Level 9.1 Total Bilirubin 1.6 H Direct Bilirubin 0.00 Indirect Bilirubin 1.6 H Aspartate Amino Transf (AST/SGOT) 23 Alanine Aminotransferase (ALT/SGPT) 27 Alkaline Phosphatase 82 Total Protein 7.8 Albumin 4.3 Globulin 3.50 H Albumin/Globulin Ratio 1.22 Lipase 219 Free Thyroxine 1.14 Medications Medication Current Medications Ondansetron HCl (Zofran Inj) 4 mg ER BRIDGE PRN IV NAUSEA/VOMITING; Start 06/25/18 at 12:00; Stop 06/26/18 at 11:59 Acetaminophen (Tylenol Tab) 650 mg ER BRIDGE PRN PO .MILD PAIN 1-3 OR TEMP; Start 06/25/18 at 12:00; Stop 06/26/18 at 11:59 IV Flush (NS 3 ml) 3 ml PER PROTOCOL IV ; Start 06/25/18 at 13:00 Ondansetron HCl (Zofran Inj) 4 mg Q6H PRN IV NAUSEA/VOMITING; Start 06/25/18 at 13:00 Acetaminophen (Tylenol Tab) 650 mg Q6H PRN PO .PAIN 1-3 OR TEMP; Start 06/25/18 at 13:00 Acetaminophen/ Hydrocodone Bitart ([place] (5/325)) 1 tab Q6H PRN PO .MOD PAIN 4- 6; Start 06/25/18 at 13:00 Morphine Sulfate (morphine) 2 mg Q4H PRN IV .SEVERE PAIN 7-10; Start 06/25/18 at 13:00 Docusate Sodium (Colace) 100 mg Q12H PRN PO .CONSTIPATION; Start 06/25/18 at 13:00 Magnesium Hydroxide (Milk Of Mag) 30 ml DAILY PRN PO .CONSTIPATION; Start at 13:00 Heparin Sodium (Porcine) (Heparin (5000 Units/1ml)) 5,000 unit Q12 SC ; Start 06/25/18 at 21:00 Sodium Chloride 1,000 ml @ 75 mls/hr [id number] IV ; Start 06/25/18 at 12:41 Lorazepam (Ativan) 0.5 mg Q6H PRN IV ANXIETY; Start 06/25/18 at 13:00 Albuterol/ Ipratropium (Duoneb) 3 ml Q4H RESP THERAPY PRN HHN SHORTNESS OF BREATH; Start 06/25/18 at 13:00 Piperacillin Sod/ Tazobactam Sod 100 ml @ 200 mls/hr Q6 IVPB ; Start 06/25/18 at 18:00 Hydralazine HCl (Apresoline) 10 mg Q6H PRN IV ELEVATED BLOOD PRESSURE; Start 06/25/18 at 13:00 Nitroglycerin (Nitroglycerin (Sl Tab) 0.4 Mg) 1 tab Q5M PRN SL ANGINA; Start 06/25/18 at 13:00 Albuterol (Ventolin Hfa) 2 puff Q6H PRN INH WHEEZING AND SOB; Start 06/25/18 at 13:00 MATTHIAS LALA MD Jun 25, 2018 15:17
[2018-06-25] MEDS ORDERED: BUPIVACAINE 0.5%/EPI (SDV) 30 ML INJ ONE (16:49)
--- NOTE | 2018-06-25 16:50 | PREAC ---
Date/Time of Note Date/Time of Note DATE: 06/25/18 TIME: 16:48 Anesthesia Eval and Record Evaluation Time Pre-Procedure Interview DATE: 06/25/18 TIME: 16:48 Age 52 Sex male NPO: 8 hrs Preoperative diagnosis appendicitis Planned procedure laparoscopic appendectomy Past Medical History Past Medical History: Includes GI: Obesity Surgery & Anesthesia Issues No known issue Meds Anticoagulation: No Beta Asif within 24 hr: No Reason Beta Asif not given: Pt. not on B-Asif Active Scripts Cyclobenzaprine Hcl* (Cyclobenzaprine Hcl*) 10 Mg Tablet, 10 MG PO QHS, #7 TAB Prov:OSKAR NATHAN PA-C 11/30/17 Prednisone* (Prednisone*) 20 Mg Tab, 40 MG PO DAILY for 4 Days, TAB Prov:OSKAR NATHAN PA-C 11/30/17 Naproxen* (Naprosyn*) 500 Mg Tablet, 500 MG PO BID PRN for PAIN AND/OR INFL AMMATION, #30 TAB Prov:OSKAR NATHAN PA-C 11/30/17 Ipratropium [place] (Ipratropium [place]) 15 Ml [place], 15 ML NS TID for 7 Days, SPRAY Prov:JOSEFINA,TERA 04/19/17 Ibuprofen* (Motrin*) 600 Mg Tab, 600 MG PO Q6, #30 TAB Prov:JOSEFINA,TERA 04/19/17 Acetaminophen* (Tylophen*) 500 Mg Capsule, 2 CAP PO Q8H PRN for PAIN AND OR ELEVATED TEMP, #20 CAP Prov:JOSEFINA,TERA 04/19/17 Inhaler, Assist Devices (E-Z SPACER) 1 Each Spacer, 1 EACH MC, #1 Prov:JOSEFINA,TERA 04/19/17 Albuterol Sulfate* (Ventolin HFA*) 18 Gm Hfa.aer.ad, 2 PUFF INHALATION Q4H, #1 INHALER Prov:JOSEFINA,TERA 04/19/17 Ibuprofen* (Ibuprofen*) 600 Mg Tablet, 600 MG PO Q8 PRN for pain and/or fever, #20 TAB Prov:BELLE PUGH MD 03/16/17 Albuterol Sulfate* (Proair HFA*) 8.5 Gm Hfa.aer.ad, 2 PUFF INH Q6H PRN for WHEEZING AND SOB, #1 INHALER Prov:BELLE PUGH MD 03/16/17 Azithromycin* (Zithromax*) 250 Mg Tablet, 250 MG PO .ZPACK DIRECTED, #6 TAB TAKE 500 MG (2 TABS) THE FIRST DAY THEN 250 MG (1 TAB) DAYS 2-5 Prov:BELLE PUGH MD 03/16/17 Amoxicillin/Potassium Clav (Amox-Clav 875-125 mg Tablet) 875-125 mg Tab, 1 TAB PO BID for 7 Days, #14 TAB Prov:BELLE PUGH MD 03/16/17 Hydrocodone Bit-Acetaminophen* ([place]*) 5-325 Mg Tab, 1 TAB PO Q6 PRN for PAIN, #11 TAB Prov:ENRRIQUE GAMEZ DO 02/11/15 Cyclobenzaprine Hcl* (Cyclobenzaprine Hcl*) 10 Mg Tablet, 10 MG PO TID, #15 TAB Prov:ENRRIQUE GAMEZ DO 02/11/15 Naproxen* (Naprosyn*) 500 Mg Tablet, 500 MG PO BID PRN for PAIN AND/OR INFLAMMATION, #20 TAB Prov:ENRRIQUE GAMEZ DO 02/11/15 Current Medications IV Flush (NS 3 ml) 3 ml PER PROTOCOL IV ; Start 06/25/18 at 13:00 Ondansetron HCl (Zofran Inj) 4 mg Q6H PRN IV NAUSEA/VOMITING; Start 06/25/18 at 13:00 Acetaminophen (Tylenol Tab) 650 mg Q6H PRN PO .PAIN 1-3 OR TEMP; Start 06/25/18 at 13:00 Acetaminophen/ Hydrocodone Bitart ([place] (5/325)) 1 tab Q6H PRN PO .MOD PAIN 4- 6; Start 06/25/18 at 13:00 Morphine Sulfate (morphine) 2 mg Q4H PRN IV .SEVERE PAIN 7-10; Start 06/25/18 at 13:00 Docusate Sodium (Colace) 100 mg Q12H PRN PO .CONSTIPATION; Start 06/25/18 at 13:00 Magnesium Hydroxide (Milk Of Mag) 30 ml DAILY PRN PO .CONSTIPATION; Start 06/25/18 at 13:00 Heparin Sodium (Porcine) (Heparin (5000 Units/1ml)) 5,000 unit Q12 SC ; Start 06/25/18 at 21:00 Sodium Chloride 1,000 ml @ 75 mls/hr [id number] IV ; Start 06/25/18 at 12:41 Lorazepam (Ativan) 0.5 mg Q6H PRN IV ANXIETY; Start 06/25/18 at 13:00 Albuterol/ Ipratropium (Duoneb) 3 ml Q4H RESP THERAPY PRN HHN SHORTNESS OF BREATH; Start 06/25/18 at 13:00 Piperacillin Sod/ Tazobactam Sod 100 ml @ 200 mls/hr Q6 IVPB ; Start 06/25/18 at 18:00 Hydralazine HCl (Apresoline) 10 mg Q6H PRN IV ELEVATED BLOOD PRESSURE; Start 06/25/18 at 13:00 Nitroglycerin (Nitroglycerin (Sl Tab) 0.4 Mg) 1 tab Q5M PRN SL ANGINA; Start 06/25/18 at 13:00 Albuterol (Ventolin Hfa) 2 puff Q6H PRN INH WHEEZING AND SOB; Start 06/25/18 at 13:00 Oxycodone/ Acetaminophen (Percocet (5/ 325)) 1 tab Q4H PRN PO .MILD PAIN (1-3); Start 06/25/18 at 17:00 Oxycodone/ Acetaminophen (Percocet (5/ 325)) 2 tab Q4H PRN PO .MODERATE PAIN (4-6); Start 06/25/18 at 17:00 Morphine Sulfate (morphine) 2 mg ONCE PRN IV .SEVERE PAIN 7-10; Start 06/25/18 at 17:00; Stop 06/25/18 at 23:00 Ondansetron HCl (Zofran Inj) 4 mg Q6H PRN IV NAUSEA/VOMITING; Start 06/25/18 at 17:00 Meds reviewed: Yes Allergies Coded Allergies: No Known Allergy (Unverified , 02/11/15) Allergies Reviewed: Yes Labs/Studies Labs Reviewed: Reviewed by anesthesiologist Result Diagram: 06/25/18 1042 06/25/18 1042 Laboratory Tests 06/25/18 10:42 test: N/A Pre-procedure Exam Last vitals Vital Signs Date Temp Pulse Resp B/P (MAP) Pulse Ox O2 O2 Flow FiO2 Time Delivery Rate 06/25/18 98.1 90 20 127/69 94 Room Air 15:06 (88) 06/25/18 2 10:30 Airway: Adequate mouth opening, Adequate thyromental dist Mallampati: Mallampati II Teeth: Normal Lung: Normal Heart: Normal ASA Physical Status ASA physical status: 2 Emergency: E Planned Anesthetic General/MAC: ETT Planned Pain Management Parenteral pain med Pre-operative Attestations Prior to commencing anesthesia and surgery, the patient was re-evaluated, there was verification of: *The patient's identity *The results of appropriate recent lab work and preoperative vital signs *The above evaluation not changing prior to induction *Anesthetic plan, risk benefits, alternative and complications discussed with patient/family; questions answered; patient/family understands, accepts and wishes to proceed. KITTY PAREDES Jun 25, 2018 16:49
[2018-06-25] MEDS ORDERED: ROCURONIUM 50 MG INJ ONE (16:59)
[2018-06-25] MEDS ORDERED: PROPOFOL 20 ML ONE (16:59)
[2018-06-25] MEDS ORDERED: OXYCODONE/ACETAMINOPHEN (5/325) TAB PO PRN ×5 (17:00→18:30)
[2018-06-25] MEDS ORDERED: morphine 2 MG INJ IV PRN ×2 (17:00→18:00)
[2018-06-25] MEDS ORDERED: SUCCINYLCHOLINE CHLORIDE 100 MG/5 ML SYG IV ONE (17:00)
[2018-06-25] MEDS ORDERED: ONDANSETRON 4 MG INJ ONE ×2 (17:19→17:42)
[2018-06-25] MEDS ORDERED: DEXAMETHASONE 4 MG/ML 5 ML INJ ONE (17:19)
[2018-06-25] MEDS ORDERED: NEOSTIGMINE 10 MG INJ ONE (17:42)
[2018-06-25] MEDS ORDERED: GLYCOPYRROLATE 0.4 MG INJ ONE (17:42)
[2018-06-25] MEDS ORDERED: LABETALOL HCL 20MG INJ ONE (17:50)
[2018-06-25] MEDS: PIPER-TAZO 3.375 GM IV (PMX) 100 ML IVPB SCH ×2 (18:00→23:46)
--- NOTE | 2018-06-25 18:00 | OPR ---
Date/Time of Note Date/Time of Note DATE: 06/25/18 TIME: 17:53 Operative Report Procedure Date: Jun 25, 2018 Preoperative Diagnosis Acute appendicitis Postoperative Diagnosis Acute appendicitis with perforation and localized peritonitis Operation/Procedure Performed 1. Laparoscopic appendectomy 2. Placement of drain Surgeon Matthias Lala MD Ambulance Driver None Anesthesia Type: general Anesthesiologist: KITTY PAREDES Estimated Blood Loss: minimal Transfusion none Specimen Appendix Grafts/Implants none Tubes/Drains #19 Round Bobo drain Complications none Pt Condition Post Procedure: stable Disposition: PACU Indications Acute appendicitis Procedure Description After satisfactory general endotracheal anesthesia was achieved, the abdomen was prepped and draped in the usual fashion. The abdomen was insufflated with carbon dioxide through an umbilical Veress needle to 15 mmHg pressure. The Veress needle was removed and the umbilical incision extended to 5 mm through which a 5 mm trocar was placed. There was some pus noted in the right lower quadrant. Under direct visualization a 5 mm suprapubic trocar was placed as well as a 12 mm trocar midway between the epigastrium and the umbilical port. The cecum and appendix were mobilized during mobilization there was prompt extrusion of 210 mm fecaliths through the base of the appendix. These were each retracted with a 10 mm morcellator. A window was made in the mesoappendix allowing a stapler to be placed across the base of the cecum proximal to the perforation.. The stapler was fired disconnecting the appendix from the cecum. The mesoappendix was divided with a second firing of the vascular stapler. The appendix was placed into an Endo Catch removed by the 12 mm port site hemostasis was excellent. Because of the localized peritonitis and perforation it was elected to place a drain. A #19 round Bobo drain was placed draining the right lower quadrant and paracolic gutter, exiting through the suprapubic port where it was secured to skin with 2-0 nylon. Next 2 0 fascial sutures were placed at the 12 mm port with the assistance of a chalino-close device. The abdomen was then desufflated and all trochars were removed. The fascial sutures were tied down. The skin punctures were infiltrated with 30 cc of 0.5% Marcaine with epinephrine. The skin punctures were closed with arnie. Sponge and needle counts were reported as correct x2. MATTHIAS LALA MD Jun 25, 2018 18:00
--- NOTE | 2018-06-25 18:06 | PAC ---
Date/Time of Note Date/Time of Note DATE: 06/25/18 TIME: 18:05 Post-Anesthesia Notes Post-Anesthesia Note Last documented vital signs Vital Signs Date Temp Pulse Resp B/P (MAP) Pulse Ox O2 O2 Flow FiO2 Time Delivery Rate 06/25/18 98.1 90 20 127/69 94 Room Air 1805 (88) 06/25/18 2 10:30 Activity: WNL Respiratory function: WNL Cardiovascular function: WNL Mental status: Baseline Pain reasonably controlled: Yes Hydration appropriate: Yes Nausea/Vomiting absent: Yes KITTY PAREDES Jun 25, 2018 18:06
[2018-06-25] MEDS ORDERED: HYDROmorphONE 1 MG/5 ML IV SYRINGE IV ONE (18:10)
[2018-06-25] MEDS: HYDROmorphONE 1 MG/5 ML IV SYRINGE IV PRN ×2 (18:27→19:09)
[2018-06-25] MEDS ORDERED: FENTAnyl 50 MCG/ML VIAL IV PRN ×2 (18:30)
[2018-06-25] MEDS ORDERED: MEPERIDINE 25 MG INJ IV PRN (18:30)
[2018-06-25] MEDS ORDERED: ALBUTEROL 0.083% (NEB) 2.5 MG/3 ML AMP HHN PRN (18:30)
[2018-06-25] MEDS ORDERED: HYDROmorphONE 1 MG/5 ML IV SYRINGE IV PRN ×2 (18:30)
[2018-06-25] MEDS ORDERED: EPHEDrine SULFATE 50 MG/5 ML SYG IV PRN (18:30)
[2018-06-25] MEDS ORDERED: LABETALOL HCL 20MG INJ IV PRN (18:30)
[2018-06-25] MEDS ORDERED: DIPHENHYDRAMINE 50 MG INJ IV PRN (18:30)
[2018-06-25] MEDS: FENTAnyl 50 MCG/ML VIAL IV PRN ×3 (18:40→19:18)
[2018-06-25] MEDS ORDERED: HEPARIN 5,000 UNIT/1 ML VIAL SC SCH (21:00)
[2018-06-25] MEDS: morphine 2 MG INJ IV PRN (23:13)
[2018-06-26 00:30] VITALS: BP 107/62; PULSE 88; RESP 20
[2018-06-26] MEDS: KETOROLAC 30 MG INJ IV PRN ×3 (01:34→17:29)
[2018-06-26] MEDS: SOD CHLORIDE 0.45% 1,000 ML IV SCH ×3 (02:01→23:50)
[2018-06-26 05:10] VITALS: BP 111/59; PULSE 75; RESP 18
[2018-06-26] MEDS: PIPER-TAZO 3.375 GM IV (PMX) 100 ML IVPB SCH ×4 (05:17→23:50)
[2018-06-26 07:13] VITALS: BP 115/60; PULSE 68; RESP 19
[2018-06-26] MEDS: OXYCODONE/ACETAMINOPHEN (5/325) TAB PO PRN ×2 (10:23→17:29)
--- NOTE | 2018-06-26 12:03 | QN ---
Documentation Comment Postoperative day #1 Abdomen is quite distended Leukocytosis persist DUNIA drainage serosanguineous Wound: Continue medical management. MATTHIAS SALOMON MD Jun 26, 2018 12:03
--- NOTE | 2018-06-26 12:39 | PN ---
Date/Time of Note Date/Time of Note DATE: 06/26/18 TIME: 12:38 Assessment/Plan VTE Prophylaxis Risk score (from Ns)>0 risk: 6 SCD applied (from Ns): Yes Pharmacological prophylaxis: NA/contraindicated Pharm contraindication: surgical contra Lines/Catheters IV C[facility] Type (from [facility] Peripheral IV Urinary Cath still in place: No Assessment/Plan Hospital Course SUBJECTIVE: Lying in bed, having 10 out of 10 on abdomen. Abdomen looks distended. OBJECTIVE: Vital signs-see below PHYSICAL EXAM: Constitutional: Well-developed, adequately built, lying in bed comfortably. Psych: nl mood/affect, no complaints Head: atraumatic, normocephalic Eyes: nl conjunctiva, nl sclera ENMT: mucosa pink and moist, nl external ears & nose Neck: non-tender, supple Respiratory: clear to auscultation, normal air movement Cardiovascular: nl pulses, regular rate and rhythm Gastrointestinal: +tender/distended,no sowel sounds apprecaited. no rebound. Musculoskeletal/extremities: nl extremities to inspection, motor strength equal bilaterally, no focal deficit. Normal pulses,no cyanosis, no edema. Neurological: Alert oriented 3,nl speech, nl strength Skin: nl turgor ASSESSMENT/PLAN: 52-year-old male with acute appendicitis. 1. Acute appendicitis. -Status post laparoscopic appendectomy 06/25/2018. POD #1 -Postoperative management per surgery. -Encourage ambulation, IS 2. Post operative abdominal distention -Patient with marked abdominal distention/tenderness/leukocytosis=> plan is to obtain abdominal x-ray to rule out obstruction versus ileus versus others. -Keep n.p.o. -Encourage ambulation. Continue pain control. 3. Sepsis Culprit: Intra-abdominal -Appendix wound culture growing GNR -Leukocytosis persists.. -Obtain UA/CS/Blood CX -Follow-up further imaging studies ordered by surgery. -continue Zosyn and ID consult for antibiotic management. 4. Obesity with BMI 32.3. -Weight reduction advised. -A1c lipid panel within acceptable range. DVT prophylaxis: SCDs. PUD prophylaxis: Start Protonix CODE STATUS: Full code Diet: N.p.o. Disposition: Patient with marked abdominal distention requiring further imaging. Follow-up surgery recommendations. Patient was seen in collaboration with . Result Diagram: 06/26/18 0446 06/26/18 0446 Results 24hrs Laboratory Tests Test 06/25/18 15:15 06/25/18 18:33 06/26/18 04:46 Lactic Acid Level 1.6 White Blood Count 15.6 H 15.7 H Red Blood Count 4.49 L 4.54 L Hemoglobin 14.1 14.2 Hematocrit 42.3 42.7 Mean Corpuscular Volume 94.2 94.1 Mean Corpuscular Hemoglobin 31.4 31.3 Mean Corpuscular Hemoglobin Concent 33.3 33.3 Red Cell Distribution Width 12.5 12.8 Platelet Count 198 # 199 Mean Platelet Volume 10.4 10.6 H Immature Granulocytes % 0.900 H 1.000 H Neutrophils % 89.1 H 90.0 H Lymphocytes % 3.7 L 3.4 L Monocytes % 5.9 5.5 Eosinophils % 0.1 0.0 Basophils % 0.3 0.1 Nucleated Red Blood Cells % 0.0 0.0 Immature Granulocytes # 0.140 H 0.150 H Neutrophils # 13.9 H 14.2 H Lymphocytes # 0.6 L 0.5 L Monocytes # 0.9 0.9 Eosinophils # 0.0 0.0 Basophils # 0.0 0.0 Nucleated Red Blood Cells # 0.0 0.0 Sodium Level 140 Potassium Level 4.9 Chloride Level 102 Carbon Dioxide Level 28 Anion Gap 10 # Blood Urea Nitrogen 12 Creatinine 1.14 Est Glomerular Filtrat Rate mL/min > 60 Glucose Level 161 Hemoglobin A1c 5.5 Calcium Level 8.3 L Phosphorus Level 3.5 Magnesium Level 2.1 Total Bilirubin 1.1 Direct Bilirubin 0.00 Indirect Bilirubin 1.1 Aspartate Amino Transf (AST/SGOT) 20 Alanine Aminotransferase (ALT/SGPT) 27 Alkaline Phosphatase 62 Total Protein 6.7 # Albumin 3.5 Globulin 3.20 Albumin/Globulin Ratio 1.09 Triglycerides Level 40 Cholesterol Level 141 LDL Cholesterol, Calculated 95 HDL Cholesterol 38 Cholesterol/HDL Ratio 3.7 Thyroid Stimulating Hormone (TSH) 0.140 L Exam/Review of Systems Exam Vitals Vital Signs Date Temp Pulse Resp B/P (MAP) Pulse Ox O2 O2 Flow FiO2 Time Delivery Rate 06/26/18 97.2 68 19 115/60 96 Nasal 07:13 (78) Cannula 06/26/18 2.0 05:10 Intake and Output 06/25/18 06/25/18 06/26/18 1515:00 23:00 07:00 IntakeIntake Total 800 ml 900 ml OutputOutput Total 60 ml 320 ml BalanceBalance 740 ml 580 ml Results Results 24hrs Laboratory Tests Test 06/25/18 15:15 06/25/18 18:33 06/26/18 04:46 Lactic Acid Level 1.6 White Blood Count 15.6 H 15.7 H Red Blood Count 4.49 L 4.54 L Hemoglobin 14.1 14.2 Hematocrit 42.3 42.7 Mean Corpuscular Volume 94.2 94.1 Mean Corpuscular Hemoglobin 31.4 31.3 Mean Corpuscular Hemoglobin Concent 33.3 33.3 Red Cell Distribution Width 12.5 12.8 Platelet Count 198 # 199 Mean Platelet Volume 10.4 10.6 H Immature Granulocytes % 0.900 H 1.000 H Neutrophils % 89.1 H 90.0 H Lymphocytes % 3.7 L 3.4 L Monocytes % 5.9 5.5 Eosinophils % 0.1 0.0 Basophils % 0.3 0.1 Nucleated Red Blood Cells % 0.0 0.0 Immature Granulocytes # 0.140 H 0.150 H Neutrophils # 13.9 H 14.2 H Lymphocytes # 0.6 L 0.5 L Monocytes # 0.9 0.9 Eosinophils # 0.0 0.0 Basophils # 0.0 0.0 Nucleated Red Blood Cells # 0.0 0.0 Sodium Level 140 Potassium Level 4.9 Chloride Level 102 Carbon Dioxide Level 28 Anion Gap 10 # Blood Urea Nitrogen 12 Creatinine 1.14 Est Glomerular Filtrat Rate mL/min > 60 Glucose Level 161 Hemoglobin A1c 5.5 Calcium Level 8.3 L Phosphorus Level 3.5 Magnesium Level 2.1 Total Bilirubin 1.1 Direct Bilirubin 0.00 Indirect Bilirubin 1.1 Aspartate Amino Transf (AST/SGOT) 20 Alanine Aminotransferase (ALT/SGPT) 27 Alkaline Phosphatase 62 Total Protein 6.7 # Albumin 3.5 Globulin 3.20 Albumin/Globulin Ratio 1.09 Triglycerides Level 40 Cholesterol Level 141 LDL Cholesterol, Calculated 95 HDL Cholesterol 38 Cholesterol/HDL Ratio 3.7 Thyroid Stimulating Hormone (TSH) 0.140 L Medications Medication Current Medications IV Flush (NS 3 ml) 3 ml PER PROTOCOL IV ; Start 06/25/18 at 13:00 Acetaminophen (Tylenol Tab) 650 mg Q6H PRN PO .PAIN 1-3 OR TEMP; Start 06/25/18 at 13:00 Acetaminophen/ Hydrocodone Bitart ([place] (5/325)) 1 tab Q6H PRN PO .MOD PAIN 4- 6; Start 06/25/18 at 13:00 Morphine Sulfate (morphine) 2 mg Q4H PRN IV .SEVERE PAIN 7-10 Last administered on 06/25/18at 23:13; Admin Dose 2 MG; Start 06/25/18 at 13:00 Docusate Sodium (Colace) 100 mg Q12H PRN PO .CONSTIPATION; Start 06/25/18 at 13:00 Magnesium Hydroxide (Milk Of Mag) 30 ml DAILY PRN PO .CONSTIPATION; Start 06/25/18 at 13:00 Heparin Sodium (Porcine) (Heparin (5000 Units/1ml)) 5,000 unit Q12 SC ; Start 06/25/18 at 21:00; Status Hold Sodium Chloride 1,000 ml @ 75 mls/hr [id number] IV Last administered on 06/26/18at 09:40; Admin Dose 75 MLS/HR; Start 06/25/18 at 12:41 Lorazepam (Ativan) 0.5 mg Q6H PRN IV ANXIETY; Start 06/25/18 at 13:00 Albuterol/ Ipratropium (Duoneb) 3 ml Q4H RESP THERAPY PRN HHN SHORTNESS OF BREATH; Start 06/25/18 at 13:00 Piperacillin Sod/ Tazobactam Sod 100 ml @ 200 mls/hr Q6 IVPB Last administered on 06/26/18at 05:17; Admin Dose 200 MLS/HR; Start 06/25/18 at 18:00 Hydralazine HCl (Apresoline) 10 mg Q6H PRN IV ELEVATED BLOOD PRESSURE; Start 06/25/18 at 13:00 Nitroglycerin (Nitroglycerin (Sl Tab) 0.4 Mg) 1 tab Q5M PRN SL ANGINA; Start 06/25/18 at 13:00 Albuterol (Ventolin Hfa) 2 puff Q6H PRN INH WHEEZING AND SOB; Start 06/25/18 at 13:00 Oxycodone/ Acetaminophen (Percocet (5/ 325)) 1 tab Q4H PRN PO .MILD PAIN (1-3); Start 06/25/18 at 17:00 Oxycodone/ Acetaminophen (Percocet (5/ 325)) 2 tab Q4H PRN PO .MODERATE PAIN (4-6) Last administered on 06/26/18at 10:23; Admin Dose 2 TAB; Start 06/25/18 at 17:00 Ondansetron HCl (Zofran Inj) 4 mg Q6H PRN IV NAUSEA/VOMITING; Start 06/25/18 at 18:00 Ketorolac Tromethamine (Toradol) 30 mg Q6H PRN IV PAIN LEVEL 1-3 Last administered on 06/26/18at 09:34; Admin Dose 30 MG; Start 06/26/18 at 01:00; Stop 06/27/18 at 00:59 JENI RIOS NP Jun 26, 2018 12:39
--- NOTE | 2018-06-26 14:51 | CONS ---
DATE OF ADMISSION: 06/25/2018 DATE OF CONSULTATION: 06/26/2018 TYPE OF CONSULTATION: Infectious disease. REASON FOR CONSULTATION: Antibiotic management. HISTORY OF PRESENT ILLNESS: Alex Goddard is a 52-year-old male who [facility] with right lower abdominal pain and no bowel movements for 2 days. He describes vague pa in that is now located in the right lower quadrant with associated anorexia. Pain is 9/10 on admissi on. He denies past surgical history. He has no history of high blood pressure, diabetes or heart di sease. FAMILY HISTORY: Noncontributory. SOCIAL HISTORY: He does not smoke, drink or abuse drugs. ALLERGIES: NONE TO PENICILLIN, SULFA OR FOODS. MEDICATIONS: Per chart. REVIEW OF SYSTEMS: Noncontributory. HOSPITAL COURSE: On admission, his temperature was 100.2. His white count was 15.8, H and H of 15.9 and 46.5, platelet count 249,000. BUN and creatinine is 9/0.86, glucose random was 148. He had 86% neutrophils. His urine was negative. The patient received Zosyn in the emergency room. Chest x-ra y: No evidence of congestive heart failure or pneumonia. CT scan of the abdomen and pelvis showed a cute appendicitis without free air or abscess, bilateral nonobstructing small renal calculi more nume suresh on the left, no obstructive uropathy, anterior mid left renal cyst 1.7 cm, umbilical and left in guinal fat-containing hernias without herniated bowel or strangulation. The patient had blood cultur es done. Zosyn was provided. Dr. Crespo was called for surgery. The patient was seen by Dr. Crespo who agreed with the diagnosis. He noted tender right lower quadrant with guarding, but no rebound a nd he was taken to surgery where he had a laparoscopic appendectomy, placement of a drain. I do not believe that there was any abscess formation, though a 19-round Obbo drain was placed draining the r ight lower quadrant and pericolic gutter, exiting through the suprapubic port where it was secured to skin with 2-0 nylon. Currently, the patient is stable, lying in bed with a distended abdomen. PHYSICAL EXAMINATION: GENERAL: He is a well-developed, well-nourished male in no acute distress. SKIN: Without generalized rash. HEENT: Within normal limits. NECK: Supple. LYMPH NODES: None palpable. CHEST: Clear to P and A with decreased breath sounds at the bases. HEART: Without murmur or gallop. ABDOMEN: Soft. It is tender and distended, but no bowel sounds at this point. No rebound. EXTREMITIES: Without cyanosis, clubbing or edema. RECTAL AND GENITAL: Deferred. NEUROLOGIC: No focal neurological abnormality. IMPRESSION AND PLAN: The patient is status post laparoscopic appendectomy. He needs to ambulate mor e. His white count is still elevated at 15.7 and his appendix is growing gram-negative rods from the wound culture. Blood cultures and urine cultures are negative. We will continue him on current the rapy. I will dictate my findings to the hospitalist and also to Dr. Crespo. Dictated By: ALLYSON ARIAS MD, JD/WILLIAM Conf#: [id number] DID#: [id number] CC: CHRISTIANO CRANDALL;*End*
[2018-06-26 15:44] VITALS: BP 104/62; PULSE 82; RESP 19
[2018-06-26 20:29] VITALS: BP 108/55; PULSE 77; RESP 18
[2018-06-26] MEDS: DOCUSATE SODIUM 100 MG CAP PO PRN (20:44)
[2018-06-27 04:48] VITALS: BP 119/72; PULSE 72; RESP 18
[2018-06-27] MEDS: PIPER-TAZO 3.375 GM IV (PMX) 100 ML IVPB SCH ×3 (05:12→18:13)
[2018-06-27] MEDS: morphine 2 MG INJ IV PRN ×2 (05:12→10:08)
[2018-06-27 07:39] VITALS: BP 126/76; PULSE 78; RESP 19
[2018-06-27] MEDS: OXYCODONE/ACETAMINOPHEN (5/325) TAB PO PRN ×2 (09:10→18:13)
--- NOTE | 2018-06-27 09:21 | QN ---
Documentation Comment Postoperative day #2 Afebrile throughout Leukocytosis resolved Yesterday's KUB was unremarkable DUNIA drainage serosanguineous Still very tender abdomen. The patient states that he has had no improvement since surgery Plan: Continue medical management MATTHIAS LALA MD Jun 27, 2018 09:21
[2018-06-27] MEDS: DOCUSATE SODIUM 100 MG CAP PO PRN (10:08)
[2018-06-27] MEDS: SOD CHLORIDE 0.45% 1,000 ML IV SCH (12:46)
--- NOTE | 2018-06-27 12:49 | CONS ---
Assessment/Plan Assessment/Plan Hospital Course (Demo Recall) Patient is awake ambulating in the hallway he has significant abdominal pain and also some burning with urination, no fevers overnight. WBC 8.1 platelets 185 neutrophils 79.5 BUN 15 creatinine 0.99 Microbiology: Intraoperative culture grew E. coli urine culture and blood cultures remain negative KUB from yesterday revealed no evidence of obstruction and postoperative changes Antimicrobials: Zosyn Physical examination: Well-nourished well-developed middle-aged man who is alert in no distress. Head atraumatic normocephalic neck is supple chest rise symmetrical breath sounds clear heart: S1-S2. Abdomen distended very tender on palpation extremities without cyanosis Assessment: 1. Acute appendicitis, status post laparoscopic appendectomy, postop day #2 2. Ongoing abdominal pain 3. Kidney stones 4. Resolved leukocytosis Plan: Patient is clinically stable, still with significant abdominal pain, urine culture and blood cultures are negative, continue on current antibiotics, consider repeat CT of the abdomen if pain persists, surgical recommendations noted Discussed with patient/RN Consultation Date/Type/Reason Admit Date/Time Jun 25, 2018 at 11:39 Initial Consult Date 06/25/18 Type of Consult id Date/Time of Note DATE: 06/27/18 TIME: 12:49 Exam/Review of Systems Exam Vitals Vital Signs Date Temp Pulse Resp B/P (MAP) Pulse Ox O2 O2 Flow FiO2 Time Delivery Rate 06/27/18 98.1 78 19 126/76 96 Room Air 07:39 (93) 06/26/18 2.0 05:10 Intake and Output 06/26/18 06/26/18 06/27/18 1515:00 23:00 07:00 IntakeIntake Total 410 ml 800 ml 1060 ml OutputOutput Total 850 ml 565 ml 625 ml BalanceBalance -440 ml 235 ml 435 ml Results Result Diagram: 06/27/18 0940 06/27/18 0429 Results 24hrs Laboratory Tests Test 06/26/18 14:35 06/27/18 04:29 06/27/18 09:40 Urine Color YELLOW Urine Clarity CLEAR Urine pH 6.0 Urine Specific [place] 1.009 Urine Ketones NEGATIVE Urine Nitrite NEGATIVE Urine Bilirubin NEGATIVE Urine Urobilinogen NEGATIVE Urine Leukocyte Esterase NEGATIVE Urine Microscopic RBC 19 H Urine Microscopic WBC 1 Urine Hemoglobin 2+ H Urine Glucose NEGATIVE Urine Total Protein NEGATIVE White Blood Count 8.9 # 8.1 Red Blood Count 3.99 L 4.12 L Hemoglobin 12.7 L 13.0 L Hematocrit 38.2 L 39.5 L Mean Corpuscular Volume 95.7 95.9 Mean Corpuscular Hemoglobin 31.8 31.6 Mean Corpuscular Hemoglobin Concent 33.2 32.9 Red Cell Distribution Width 12.8 12.6 Platelet Count 183 185 Mean Platelet Volume 10.8 H 10.6 H Immature Granulocytes % 0.600 H 0.500 H Neutrophils % 81.5 H 79.5 H Lymphocytes % 7.8 L 8.8 L Monocytes % 9.4 9.9 Eosinophils % 0.6 1.2 Basophils % 0.1 0.1 Nucleated Red Blood Cells % 0.0 0.0 Immature Granulocytes # 0.050 H 0.040 H Neutrophils # 7.3 6.4 Lymphocytes # 0.7 L 0.7 L Monocytes # 0.8 0.8 Eosinophils # 0.1 0.1 Basophils # 0.0 0.0 Nucleated Red Blood Cells # 0.0 0.0 Sodium Level 142 Potassium Level 4.0 Chloride Level 105 Carbon Dioxide Level 30 Anion Gap 7 Blood Urea Nitrogen 15 Creatinine 0.99 Est Glomerular Filtrat Rate mL/min > 60 Glucose Level 100 # Calcium Level 8.0 L Medications Medication Current Medications IV Flush (NS 3 ml) 3 ml PER PROTOCOL IV ; Start 06/25/18 at 13:00 Acetaminophen (Tylenol Tab) 650 mg Q6H PRN PO .PAIN 1-3 OR TEMP; Start 06/25/18 at 13:00 Acetaminophen/ Hydrocodone Bitart ([place] (5/325)) 1 tab Q6H PRN PO .MOD PAIN 4- 6; Start 06/25/18 at 13:00 Morphine Sulfate (morphine) 2 mg Q4H PRN IV .SEVERE PAIN 7-10 Last administered on 06/27/18at 10:08; Admin Dose 2 MG; Start 06/25/18 at 13:00 Docusate Sodium (Colace) 100 mg Q12H PRN PO .CONSTIPATION Last administered on 06/27/18at 10:08; Admin Dose 100 MG; Start 06/25/18 at 13:00 Magnesium Hydroxide (Milk Of Mag) 30 ml DAILY PRN PO .CONSTIPATION; Start 06/25 at 13:00 Heparin Sodium (Porcine) (Heparin (5000 Units/1ml)) 5,000 unit Q12 SC ; Start 06/25/18 at 21:00; Status Hold Sodium Chloride 1,000 ml @ 75 mls/hr [id number] IV Last administered on 06/27/18at 12:46; Admin Dose 75 MLS/HR; Start 06/25/18 at 12:41 Lorazepam (Ativan) 0.5 mg Q6H PRN IV ANXIETY; Start 06/25/18 at 13:00 Albuterol/ Ipratropium (Duoneb) 3 ml Q4H RESP THERAPY PRN HHN SHORTNESS OF BREATH; Start 06/25/18 at 13:00 Piperacillin Sod/ Tazobactam Sod 100 ml @ 200 mls/hr Q6 IVPB Last administered on 06/27/18at 12:46; Admin Dose 200 MLS/HR; Start 06/25/18 at 18:00 Hydralazine HCl (Apresoline) 10 mg Q6H PRN IV ELEVATED BLOOD PRESSURE; Start 06/25/18 at 13:00 Nitroglycerin (Nitroglycerin (Sl Tab) 0.4 Mg) 1 tab Q5M PRN SL ANGINA; Start 06/25/18 at 13:00 Albuterol (Ventolin Hfa) 2 puff Q6H PRN INH WHEEZING AND SOB; Start 06/25/18 at 13:00 Oxycodone/ Acetaminophen (Percocet (5/ 325)) 1 tab Q4H PRN PO .MILD PAIN (1-3); Start 06/25/18 at 17:00 Oxycodone/ Acetaminophen (Percocet (5/ 325)) 2 tab Q4H PRN PO .MODERATE PAIN (4-6) Last administered on 06/27/18at 09:10; Admin Dose 2 TAB; Start 06/25/18 at 17:00 Ondansetron HCl (Zofran Inj) 4 mg Q6H PRN IV NAUSEA/VOMITING; Start 06/25/18 at 18:00 INOCENCIA KLEIN NP Jun 27, 2018 12:49
--- NOTE | 2018-06-27 13:56 | PN ---
Date/Time of Note Date/Time of Note DATE: 06/27/18 TIME: 13:48 Assessment/Plan VTE Prophylaxis Risk score (from Ns)>0 risk: 3 SCD applied (from Ns): Yes Pharmacological prophylaxis: NA/contraindicated Pharm contraindication: surgical contra Lines/Catheters IV Catheter Type (from [facility]): Peripheral IV Urinary Cath still in place: No Assessment/Plan Hospital Course SUBJECTIVE: Patient with severe tenderness to abdomen with marked distention. Patient passed tiny bit of flatus this morning but no bowel movement yet. No fevers over last 24 hours. He also had dysuria and urinary retention. OBJECTIVE: Vital signs-see below PHYSICAL EXAM: Constitutional: Well-developed, adequately built, lying in bed comfortably. Psych: nl mood/affect, no complaints Head: atraumatic, normocephalic Eyes: nl conjunctiva, nl sclera ENMT: mucosa pink and moist, nl external ears & nose Neck: non-tender, supple Respiratory: clear to auscultation, normal air movement Cardiovascular: nl pulses, regular rate and rhythm Gastrointestinal: +tender/distended,no bowel sounds appreciated. no rebound. Musculoskeletal/extremities: nl extremities to inspection, motor strength equal bilaterally, no focal deficit. Normal pulses,no cyanosis, no edema. Neurological: Alert oriented 3,nl speech, nl strength Skin: nl turgor ASSESSMENT/PLAN: 52-year-old male with acute appendicitis. 1. Perforated acute appendicitis -Status post laparoscopic appendectomy 06/25/2018. POD #2 -Leukocytosis resolved but left shift +, abdominal x-ray negative for obstruction, passed tiny bit flatus this morning=>However abdominal distention/tenderness persists... -Insert Gonzalez catheter to relieve some pressure of his abdomen. Recommend monitoring another 24 hours and if symptoms persist with no return of bowel function, patient would need repeat scanning=.d/w who will order CT contrast study in AM if indiacted after reevaluation -Continue broad-spectrum antibiotics and encourage ambulation. Continue pain control=> change to Dilaudid. 3. Sepsis Culprit: Intra-abdominal -Leukocytosis,fever resolved.. -Appendix wound culture grew E. coli -Continue antibiotics. 4. Obesity with BMI 32.3. -Weight reduction advised. -A1c lipid panel within acceptable range. 5. Urinary retention/dysuria -Obtain PSA level. Insert Gonzalez catheter. DVT prophylaxis: SCDs. PUD prophylaxis: Start Protonix CODE STATUS: Full code Diet: N.p.o. until bowel function returns. Disposition: Overall abdomen w/ worsened tenderness. Leukocytosis resolved but Left shift persists.. cont. IV abx. May need contrast Ct if symptoms persists over 24hrs.. Follow-up surgery recommendations. Patient was seen in collaboration with . Result Diagram: 06/27/18 0940 06/27/18 0429 Results 24hrs Laboratory Tests Test 06/26/18 14:35 06/27/18 04:29 06/27/18 09:40 Urine Color YELLOW Urine Clarity CLEAR Urine pH 6.0 Urine Specific [place] 1.009 Urine Ketones NEGATIVE Urine Nitrite NEGATIVE Urine Bilirubin NEGATIVE Urine Urobilinogen NEGATIVE Urine Leukocyte Esterase NEGATIVE Urine Microscopic RBC 19 H Urine Microscopic WBC 1 Urine Hemoglobin 2+ H Urine Glucose NEGATIVE Urine Total Protein NEGATIVE White Blood Count 8.9 # 8.1 Red Blood Count 3.99 L 4.12 L Hemoglobin 12.7 L 13.0 L Hematocrit 38.2 L 39.5 L Mean Corpuscular Volume 95.7 95.9 Mean Corpuscular Hemoglobin 31.8 31.6 Mean Corpuscular Hemoglobin Concent 33.2 32.9 Red Cell Distribution Width 12.8 12.6 Platelet Count 183 185 Mean Platelet Volume 10.8 H 10.6 H Immature Granulocytes % 0.600 H 0.500 H Neutrophils % 81.5 H 79.5 H Lymphocytes % 7.8 L 8.8 L Monocytes % 9.4 9.9 Eosinophils % 0.6 1.2 Basophils % 0.1 0.1 Nucleated Red Blood Cells % 0.0 0.0 Immature Granulocytes # 0.050 H 0.040 H Neutrophils # 7.3 6.4 Lymphocytes # 0.7 L 0.7 L Monocytes # 0.8 0.8 Eosinophils # 0.1 0.1 Basophils # 0.0 0.0 Nucleated Red Blood Cells # 0.0 0.0 Sodium Level 142 Potassium Level 4.0 Chloride Level 105 Carbon Dioxide Level 30 Anion Gap 7 Blood Urea Nitrogen 15 Creatinine 0.99 Est Glomerular Filtrat Rate mL/min > 60 Glucose Level 100 # Calcium Level 8.0 L Exam/Review of Systems Exam Vitals Vital Signs Date Temp Pulse Resp B/P (MAP) Pulse Ox O2 O2 Flow FiO2 Time Delivery Rate 06/27/18 98.1 78 19 126/76 96 Room Air 07:39 (93) 06/26/18 2.0 05:10 Intake and Output 06/26/18 06/26/18 06/27/18 1515:00 23:00 07:00 IntakeIntake Total 410 ml 800 ml 1060 ml OutputOutput Total 850 ml 565 ml 625 ml BalanceBalance -440 ml 235 ml 435 ml Results Results 24hrs Laboratory Tests Test 06/26/18 14:35 06/27/18 04:29 06/27/18 09:40 Urine Color YELLOW Urine Clarity CLEAR Urine pH 6.0 Urine Specific [place] 1.009 Urine Ketones NEGATIVE Urine Nitrite NEGATIVE Urine Bilirubin NEGATIVE Urine Urobilinogen NEGATIVE Urine Leukocyte Esterase NEGATIVE Urine Microscopic RBC 19 H Urine Microscopic WBC 1 Urine Hemoglobin 2+ H Urine Glucose NEGATIVE Urine Total Protein NEGATIVE White Blood Count 8.9 # 8.1 Red Blood Count 3.99 L 4.12 L Hemoglobin 12.7 L 13.0 L Hematocrit 38.2 L 39.5 L Mean Corpuscular Volume 95.7 95.9 Mean Corpuscular Hemoglobin 31.8 31.6 Mean Corpuscular Hemoglobin Concent 33.2 32.9 Red Cell Distribution Width 12.8 12.6 Platelet Count 183 185 Mean Platelet Volume 10.8 H 10.6 H Immature Granulocytes % 0.600 H 0.500 H Neutrophils % 81.5 H 79.5 H Lymphocytes % 7.8 L 8.8 L Monocytes % 9.4 9.9 Eosinophils % 0.6 1.2 Basophils % 0.1 0.1 Nucleated Red Blood Cells % 0.0 0.0 Immature Granulocytes # 0.050 H 0.040 H Neutrophils # 7.3 6.4 Lymphocytes # 0.7 L 0.7 L Monocytes # 0.8 0.8 Eosinophils # 0.1 0.1 Basophils # 0.0 0.0 Nucleated Red Blood Cells # 0.0 0.0 Sodium Level 142 Potassium Level 4.0 Chloride Level 105 Carbon Dioxide Level 30 Anion Gap 7 Blood Urea Nitrogen 15 Creatinine 0.99 Est Glomerular Filtrat Rate mL/min > 60 Glucose Level 100 # Calcium Level 8.0 L Medications Medication Current Medications IV Flush (NS 3 ml) 3 ml PER PROTOCOL IV ; Start 06/25/18 at 13:00 Acetaminophen (Tylenol Tab) 650 mg Q6H PRN PO .PAIN 1-3 OR TEMP; Start 06/25/18 at 13:00 Acetaminophen/ Hydrocodone Bitart ([place] (5/325)) 1 tab Q6H PRN PO .MOD PAIN 4- 6; Start 06/25/18 at 13:00 Morphine Sulfate (morphine) 2 mg Q4H PRN IV .SEVERE PAIN 7-10 Last administered on 06/27/18at 10:08; Admin Dose 2 MG; Start 06/25/18 at 13:00 Docusate Sodium (Colace) 100 mg Q12H PRN PO .CONSTIPATION Last administered on 06/27/18 10:08; Admin Dose 100 MG; Start 06/25/18 at 13:00 Magnesium Hydroxide (Milk Of Mag) 30 ml DAILY PRN PO .CONSTIPATION; Start 06/25/18 at 13:00 Heparin Sodium (Porcine) (Heparin (5000 Units/1ml)) 5,000 unit Q12 SC ; Start 06/25/18 at 21:00; Status Hold Sodium Chloride 1,000 ml @ 75 mls/hr [id number] IV Last administered on 06/27/18at 12:46; Admin Dose 75 MLS/HR; Start 06/25/18 at 12:41 Lorazepam (Ativan) 0.5 mg Q6H PRN IV ANXIETY; Start 06/25/18 at 13:00 Albuterol/ Ipratropium (Duoneb) 3 ml Q4H RESP THERAPY PRN HHN SHORTNESS OF BREATH; Start 06/25/18 at 13:00 Piperacillin Sod/ Tazobactam Sod 100 ml @ 200 mls/hr Q6 IVPB Last administered on 06/27/18at 12:46; Admin Dose 200 MLS/HR; Start 06/25/18 at 18:00 Hydralazine HCl (Apresoline) 10 mg Q6H PRN IV ELEVATED BLOOD PRESSURE; Start 06/25/18 at 13:00 Nitroglycerin (Nitroglycerin (Sl Tab) 0.4 Mg) 1 tab Q5M PRN SL ANGINA; Start 06/25/18 at 13:00 Albuterol (Ventolin Hfa) 2 puff Q6H PRN INH WHEEZING AND SOB; Start 06/25/18 at 13:00 Oxycodone/ Acetaminophen (Percocet (5/ 325)) 1 tab Q4H PRN PO .MILD PAIN (1-3); Start 06/25/18 at 17:00 Oxycodone/ Acetaminophen (Percocet (5/ 325)) 2 tab Q4H PRN PO .MODERATE PAIN (4-6) Last administered on 06/27/18at 09:10; Admin Dose 2 TAB; Start 06/25/18 at 17:00 Ondansetron HCl (Zofran Inj) 4 mg Q6H PRN IV NAUSEA/VOMITING; Start 06/25/18 at 18:00 JENI RIOS NP Jun 27, 2018 13:56
[2018-06-27] MEDS ORDERED: HYDROmorphONE 1 MG/ML SYG IV PRN (14:00)
[2018-06-27 15:12] VITALS: BP 112/78; PULSE 82; RESP 18
[2018-06-27 20:10] VITALS: BP 125/73; PULSE 83; RESP 19
[2018-06-28] MEDS: PIPER-TAZO 3.375 GM IV (PMX) 100 ML IVPB SCH ×4 (00:30→18:23)
[2018-06-28 02:15] VITALS: BP 127/71; PULSE 77; RESP 18
[2018-06-28] MEDS: SOD CHLORIDE 0.45% 1,000 ML IV SCH ×2 (04:39→20:41)
[2018-06-28] MEDS: OXYCODONE/ACETAMINOPHEN (5/325) TAB PO PRN ×3 (05:13→23:13)
--- NOTE | 2018-06-28 06:45 | QN ---
Documentation Comment Postoperative day #3 Although the patient has been afebrile throughout, and leukocytosis has resolved, there is still is a slight left shift. The patient remains exquisitely tender in the right lower quadrant. The DUNIA drainage is serosanguineous Plan: Repeat CT of abdomen and pelvis with oral and IV contrast MATTHIAS LALA MD Jun 28, 2018 06:45
[2018-06-28] MEDS ORDERED: IOHEXOL 14.3 MG(I)/ML (ADULT) BTL PO ONE (07:00)
[2018-06-28 07:56] VITALS: BP 125/68; PULSE 84; RESP 18
[2018-06-28] MEDS ORDERED: IOHEXOL 300MG/ML 150 ML BTL ONE (08:50)
[2018-06-28] MEDS ORDERED: SOD CHLORIDE 0.9% 100 ML ONE (08:50)
--- NOTE | 2018-06-28 12:58 | PN ---
Date/Time of Note Date/Time of Note DATE: 06/28/18 TIME: 12:51 Assessment/Plan VTE Prophylaxis Risk score (from Ns)>0 risk: 4 SCD applied (from Ns): Yes Pharmacological prophylaxis: NA/contraindicated Pharm contraindication: surgical contra Lines/Catheters [facility]): Peripheral IV Urinary Cath still in place: Yes Reason Cath still needed: urinary retention, other (indicate) Assessment/Plan Hospital Course SUBJECTIVE: Continue to have abdominal pain. OBJECTIVE: Vital signs-see below PHYSICAL EXAM: Constitutional: Well-developed, adequately built, lying in bed comfortably. Psych: nl mood/affect, no complaints Head: atraumatic, normocephalic Eyes: nl conjunctiva, nl sclera ENMT: mucosa pink and moist, nl external ears & nose Neck: non-tender, supple Respiratory: clear to auscultation, normal air movement Cardiovascular: nl pulses, regular rate and rhythm Gastrointestinal: +tender/distended,no bowel sounds appreciated. no rebound. Musculoskeletal/extremities: nl extremities to inspection, motor strength equal bilaterally, no focal deficit. Normal pulses,no cyanosis, no edema. Neurological: Alert oriented 3,nl speech, nl strength Skin: nl turgor ASSESSMENT/PLAN: 52-year-old male with acute appendicitis. 1. Perforated acute appendicitis -Status post laparoscopic appendectomy 06/25/2018. POD #2 -Abdominal distention/tenderness persists (NOTE PT W/PERFORATED APPENDIX)=>Plan is to obtain a contrast CT to rule out abscess formation versus others. -Continue broad-spectrum antibiotics and encourage ambulation. Continue pain control (not tolerating Dilaudid per RN,change back to morphine) 3. Sepsis Culprit: Intra-abdominal -Leukocytosis,fever resolved..but left shift +, -Appendix wound culture grew E. coli -Continue antibiotics. 4. Obesity with BMI 32.3. -Weight reduction advised. -A1c lipid panel within acceptable range. DVT prophylaxis: SCDs. PUD prophylaxis: Start Protonix CODE STATUS: Full code Diet: N.p.o. until bowel function returns. Disposition: Overall abdomen w/ worsened tenderness. Leukocytosis resolved but Left shift persists.. cont. IV abx... Follow-up surgery recommendations.f/u CT.... Patient was seen in collaboration with . Result Diagram: 06/28/18 0435 06/28/18 0435 Results 24hrs Laboratory Tests Test 06/28/18 04:35 White Blood Count 7.8 Red Blood Count 4.41 L Hemoglobin 13.7 L Hematocrit 42.0 Mean Corpuscular Volume 95.2 Mean Corpuscular Hemoglobin 31.1 Mean Corpuscular Hemoglobin Concent 32.6 Red Cell Distribution Width 12.3 Platelet Count 228 # Mean Platelet Volume 10.4 Immature Granulocytes % 0.500 H Neutrophils % 80.1 H Lymphocytes % 6.6 L Monocytes % 9.2 Eosinophils % 3.2 Basophils % 0.4 Nucleated Red Blood Cells % 0.0 Immature Granulocytes # 0.040 H Neutrophils # 6.3 Lymphocytes # 0.5 L Monocytes # 0.7 Eosinophils # 0.3 Basophils # 0.0 Nucleated Red Blood Cells # 0.0 Sodium Level 141 Potassium Level 4.4 Chloride Level 103 Carbon Dioxide Level 28 Anion Gap 10 Blood Urea Nitrogen 13 Creatinine 0.97 Est Glomerular Filtrat Rate mL/min > 60 Glucose Level 77 Calcium Level 8.5 Exam/Review of Systems Exam Vitals Vital Signs Date Temp Pulse Resp B/P (MAP) Pulse Ox O2 O2 Flow FiO2 Time Delivery Rate 06/28/18 98.7 84 18 125/68 92 07:56 (87) 06/27/18 Room Air 07:39 06/26/18 2.0 05:10 Intake and Output 06/27/18 06/27/18 06/28/18 1515:00 23:00 07:00 IntakeIntake Total 540 ml 1325 ml OutputOutput Total 1100 ml 1240 ml 1130 ml BalanceBalance -560 ml -1240 ml 195 ml Results Results 24hrs Laboratory Tests Test 06/28/18 04:35 White Blood Count 7.8 Red Blood Count 4.41 L Hemoglobin 13.7 L Hematocrit 42.0 Mean Corpuscular Volume 95.2 Mean Corpuscular Hemoglobin 31.1 Mean Corpuscular Hemoglobin Concent 32.6 Red Cell Distribution Width 12.3 Platelet Count 228 # Mean Platelet Volume 10.4 Immature Granulocytes % 0.500 H Neutrophils % 80.1 H Lymphocytes % 6.6 L Monocytes % 9.2 Eosinophils % 3.2 Basophils % 0.4 Nucleated Red Blood Cells % 0.0 Immature Granulocytes # 0.040 H Neutrophils # 6.3 Lymphocytes # 0.5 L Monocytes # 0.7 Eosinophils # 0.3 Basophils # 0.0 Nucleated Red Blood Cells # 0.0 Sodium Level 141 Potassium Level 4.4 Chloride Level 103 Carbon Dioxide Level 28 Anion Gap 10 Blood Urea Nitrogen 13 Creatinine 0.97 Est Glomerular Filtrat Rate mL/min > 60 Glucose Level 77 Calcium Level 8.5 Medications Medication Current Medications IV Flush (NS 3 ml) 3 ml PER PROTOCOL IV ; Start 06/25/18 at 13:00 Acetaminophen (Tylenol Tab) 650 mg Q6H PRN PO .PAIN 1-3 OR TEMP; Start 06/25/18 at 13:00 Acetaminophen/ Hydrocodone Bitart ([place] (5/325)) 1 tab Q6H PRN PO .MOD PAIN 4- 6 Last administered on 06/28/18at 09:42; Admin Dose 1 TAB; Start 06/25/18 at 13:00 Docusate Sodium (Colace) 100 mg Q12H PRN PO .CONSTIPATION Last administered on 06/27/18at 10:08; Admin Dose 100 MG; Start 06/25/18 at 13:00 Magnesium Hydroxide (Milk Of Mag) 30 ml DAILY PRN PO .CONSTIPATION; Start 06/25/18 at 13:00 Heparin Sodium (Porcine) (Heparin (5000 Units/1ml)) 5,000 unit Q12 SC ; Start 06/25/18 at 21:00; Status Hold Sodium Chloride 1,000 ml @ 75 mls/hr [id number] IV Last administered on 06/28/18at 04:39; Admin Dose 75 MLS/HR; Start 06/25/18 at 12:41 Lorazepam (Ativan) 0.5 mg Q6H PRN IV ANXIETY; Start 06/25/18 at 13:00 Albuterol/ Ipratropium (Duoneb) 3 ml Q4H RESP THERAPY PRN HHN SHORTNESS OF BREATH; Start 06/25/18 at 13:00 Piperacillin Sod/ Tazobactam Sod 100 ml @ 200 mls/hr Q6 IVPB Last administered on 06/28/18at 05:58; Admin Dose 200 MLS/HR; Start 06/25/18 at 18:00 Hydralazine HCl (Apresoline) 10 mg Q6H PRN IV ELEVATED BLOOD PRESSURE; Start 06/25/18 at 13:00 Nitroglycerin (Nitroglycerin (Sl Tab) 0.4 Mg) 1 tab Q5M PRN SL ANGINA; Start 06/25/18 at 13:00 Albuterol (Ventolin Hfa) 2 puff Q6H PRN INH WHEEZING AND SOB; Start 06/25/18 at 13:00 Oxycodone/ Acetaminophen (Percocet (5/ 325)) 1 tab Q4H PRN PO .MILD PAIN (1-3); Start 06/25/18 at 17:00 Oxycodone/ Acetaminophen (Percocet (5/ 325)) 2 tab Q4H PRN PO .MODERATE PAIN (4-6) Last administered on 06/28/18at 05:13; Admin Dose 2 TAB; Start 06/25/18 at 17:00 Ondansetron HCl (Zofran Inj) 4 mg Q6H PRN IV NAUSEA/VOMITING; Start 06/25/18 at 18:00 Hydromorphone HCl (Dilaudid) 1 mg Q4H PRN IV SEVERE PAIN LEVEL 7-10 Last administered on 06/27/18at 21:12; Admin Dose 1 MG; Start 06/27/18 at 14:00 JENI RIOS NP Jun 28, 2018 12:58
--- NOTE | 2018-06-28 13:10 | CONS ---
Assessment/Plan Assessment/Plan Hospital Course (Demo Recall) No acute events overnight per report. Patient is off the floor for CT had been afebrile Vital signs this morning temperature 98.7 pulse 84 respirations 18 blood pressure 125/68 saturation 92% WBC 7.8 platelets 228 neutrophils 80.1 no bands BUN 13 creatinine 0.97 Patient remains on Zosyn Indwelling: DUNIA, Gonzalez catheter Microbiology: Intraoperative culture grew E. coli urine culture and blood cultures remain negative KUB from yesterday revealed no evidence of obstruction and postoperative changes Antimicrobials: Zosyn Assessment: 1. Acute appendicitis, status post laparoscopic appendectomy, postop day #3 2. Ongoing abdominal pain 3. Kidney stones 4. Resolved leukocytosis Plan: Continue present care and await for results of CT abdomen Discussed with staff Consultation Date/Type/Reason Admit Date/Time Jun 25, 2018 at 11:39 Initial Consult Date 06/25/18 Type of Consult id Date/Time of Note DATE: 06/28/18 TIME: 13:08 Exam/Review of Systems Exam Vitals Vital Signs Date Temp Pulse Resp B/P (MAP) Pulse Ox O2 O2 Flow FiO2 Time Delivery Rate 06/28/18 98.7 84 18 125/68 92 07:56 (87) 06/27/18 Room Air 07:39 06/26/18 2.0 05:10 Intake and Output 06/27/18 06/27/18 06/28/18 1515:00 23:00 07:00 IntakeIntake Total 540 ml 1325 ml OutputOutput Total 1100 ml 1240 ml 1130 ml BalanceBalance -560 ml -1240 ml 195 ml Results Result Diagram: 06/28/18 0435 06/28/18 0435 Results 24hrs Laboratory Tests Test 06/28/18 04:35 White Blood Count 7.8 Red Blood Count 4.41 L Hemoglobin 13.7 L Hematocrit 42.0 Mean Corpuscular Volume 95.2 Mean Corpuscular Hemoglobin 31.1 Mean Corpuscular Hemoglobin Concent 32.6 Red Cell Distribution Width 12.3 Platelet Count 228 # Mean Platelet Volume 10.4 Immature Granulocytes % 0.500 H Neutrophils % 80.1 H Lymphocytes % 6.6 L Monocytes % 9.2 Eosinophils % 3.2 Basophils % 0.4 Nucleated Red Blood Cells % 0.0 Immature Granulocytes # 0.040 H Neutrophils # 6.3 Lymphocytes # 0.5 L Monocytes # 0.7 Eosinophils # 0.3 Basophils # 0.0 Nucleated Red Blood Cells # 0.0 Sodium Level 141 Potassium Level 4.4 Chloride Level 103 Carbon Dioxide Level 28 Anion Gap 10 Blood Urea Nitrogen 13 Creatinine 0.97 Est Glomerular Filtrat Rate mL/min > 60 Glucose Level 77 Calcium Level 8.5 Medications Medication Current Medications IV Flush (NS 3 ml) 3 ml PER PROTOCOL IV ; Start 06/25/18 at 13:00 Acetaminophen (Tylenol Tab) 650 mg Q6H PRN PO .PAIN 1-3 OR TEMP; Start 06/25/18 at 13:00 Acetaminophen/ Hydrocodone Bitart ([place] (5/325)) 1 tab Q6H PRN PO .MOD PAIN 4- 6 Last administered on 06/28/18at 09:42; Admin Dose 1 TAB; Start 06/25/18 at 13:00 Docusate Sodium (Colace) 100 mg Q12H PRN PO .CONSTIPATION Last administered on 06/27/18at 10:08; Admin Dose 100 MG; Start 06/25/18 at 13:00 Magnesium Hydroxide (Milk Of Mag) 30 ml DAILY PRN PO .CONSTIPATION; Start 06/25/18 at 13:00 Heparin Sodium (Porcine) (Heparin (5000 Units/1ml)) 5,000 unit Q12 SC ; Start 06/25/18 at 21:00; Status Hold Sodium Chloride 1,000 ml @ 75 mls/hr [id number] IV Last administered on 06/28/18at 04:39; Admin Dose 75 MLS/HR; Start 06/25/18 at 12:41 Lorazepam (Ativan) 0.5 mg Q6H PRN IV ANXIETY; Start 06/25/18 at 13:00 Albuterol/ Ipratropium (Duoneb) 3 ml Q4H RESP THERAPY PRN HHN SHORTNESS OF BREATH; Start 06/25/18 at 13:00 Piperacillin Sod/ Tazobactam Sod 100 ml @ 200 mls/hr Q6 IVPB Last administered on 06/28/18at 05:58; Admin Dose 200 MLS/HR; Start 06/25/18 at 18:00 Hydralazine HCl (Apresoline) 10 mg Q6H PRN IV ELEVATED BLOOD PRESSURE; Start 06/25/18 at 13:00 Nitroglycerin (Nitroglycerin (Sl Tab) 0.4 Mg) 1 tab Q5M PRN SL ANGINA; Start 06/25/18 at 13:00 Albuterol (Ventolin Hfa) 2 puff Q6H PRN INH WHEEZING AND SOB; Start 06/25/18 at 13:00 Oxycodone/ Acetaminophen (Percocet (5/ 325)) 1 tab Q4H PRN PO .MILD PAIN (1-3); Start 06/25/18 at 17:00 Oxycodone/ Acetaminophen (Percocet (5/ 325)) 2 tab Q4H PRN PO .MODERATE PAIN (4-6) Last administered on 06/28/18at 05:13; Admin Dose 2 TAB; Start 06/25/18 at 17:00 Ondansetron HCl (Zofran Inj) 4 mg Q6H PRN IV NAUSEA/VOMITING; Start 06/25/18 at 18:00 Hydromorphone HCl (Dilaudid) 1 mg Q4H PRN IV SEVERE PAIN LEVEL 7-10 Last administered on 06/27/18at 21:12; Admin Dose 1 MG; Start 06/27/18 at 14:00 INOCENCIA KLEIN NP Jun 28, 2018 13:10
[2018-06-28 14:34] VITALS: BP 130/75; PULSE 82; RESP 18
[2018-06-28 19:40] VITALS: BP 135/66; PULSE 82; RESP 20
[2018-06-29] MEDS: PIPER-TAZO 3.375 GM IV (PMX) 100 ML IVPB SCH ×5 (00:23→23:44)
[2018-06-29 02:14] VITALS: BP 123/60; PULSE 80; RESP 20
[2018-06-29] MEDS: SOD CHLORIDE 0.45% 1,000 ML IV SCH ×3 (05:35→23:21)
[2018-06-29 07:42] VITALS: BP 116/71; PULSE 85; RESP 18
[2018-06-29] MEDS: OXYCODONE/ACETAMINOPHEN (5/325) TAB PO PRN ×4 (07:44→23:47)
--- NOTE | 2018-06-29 08:08 | QN ---
Documentation Comment Postoperative day #4 Remains afebrile throughout Leukocytosis has resolved as has the left shift The CT shows no abscess or free air and is compatible with recent appendectomy The patient continues to be symptomatic with pain and states he is not improved. He remains tender in the right lower quadrant He has had return of bowel function Plan: Full liquids p.o. Continue medical management MATTHIAS LALA MD Jun 29, 2018 08:08
[2018-06-29] MEDS: morphine 2 MG INJ IV PRN ×2 (09:15→18:37)
--- NOTE | 2018-06-29 09:30 | PN ---
Date/Time of Note Date/Time of Note DATE: 06/29/18 TIME: 09:27 Assessment/Plan VTE Prophylaxis Risk score (from Ns)>0 risk: 1 SCD applied (from Ns): Yes Pharmacological prophylaxis: NA/contraindicated Pharm contraindication: low risk/ambulating, surgical contra Lines/Catheters [facility]): Peripheral IV Urinary Cath still in place: Yes Reason Cath still needed: other (indicate) Assessment/Plan Hospital Course SUBJECTIVE: Patient had bowel movement. He also tolerated full liquid diet. Abdominal pain improved. No fevers or chills OBJECTIVE: Vital signs-see below PHYSICAL EXAM: Constitutional: Well-developed, adequately built, lying in bed comfortably. Psych: nl mood/affect, no complaints Head: atraumatic, normocephalic Eyes: nl conjunctiva, nl sclera ENMT: mucosa pink and moist, nl external ears & nose Neck: non-tender, supple Respiratory: clear to auscultation, normal air movement Cardiovascular: nl pulses, regular rate and rhythm Gastrointestinal: +tender/distended-improved,no bowel sounds appreciated. no rebound. Musculoskeletal/extremities: nl extremities to inspection, motor strength equal bilaterally, no focal deficit. Normal pulses,no cyanosis, no edema. Neurological: Alert oriented 3,nl speech, nl strength Skin: nl turgor ASSESSMENT/PLAN: 52-year-old male with acute appendicitis. 1. Perforated acute appendicitis -Status post laparoscopic appendectomy 06/25/2018. POD #4 -Repeat CT with no evidence of abscess/fluid collection/or acute intra-abdominal issues. -Continue antimicrobials, encourage ambulation, incentive spirometry. -Drain management per surgery. 3. Status post sepsis Culprit: Intra-abdominal -Leukocytosis/left shift resolved. -Appendix wound culture grew E. coli -Continue antibiotics. 4. Obesity with BMI 32.3. -Weight reduction advised. -A1c lipid panel within acceptable range. DVT prophylaxis: SCDs. PUD prophylaxis: Start Protonix CODE STATUS: Full code Diet: Tolerating full liquid diet. Advance diet per surgical recommendations. Disposition: Overall, patient with improving abdominal pain. Please note that patient had a ruptured appendix and his postoperative course will be slightly longer than a straightforward appendicitis. Continue current management and follow-up postoperative surgical recommendations. Continue to monitor drain output. KRISTAL Gonzalez in a.m. Patient was seen in collaboration with . Result Diagram: 06/29/18 0439 06/29/18 0439 Results 24hrs Laboratory Tests Test 06/29/18 04:39 White Blood Count 6.5 Red Blood Count 4.40 L Hemoglobin 13.6 L Hematocrit 40.4 L Mean Corpuscular Volume 91.8 Mean Corpuscular Hemoglobin 30.9 Mean Corpuscular Hemoglobin Concent 33.7 Red Cell Distribution Width 12.3 Platelet Count 244 Mean Platelet Volume 10.1 Immature Granulocytes % 0.900 H Neutrophils % 68.7 Lymphocytes % 11.1 L Monocytes % 14.2 H Eosinophils % 4.8 Basophils % 0.3 Nucleated Red Blood Cells % 0.0 Immature Granulocytes # 0.060 H Neutrophils # 4.4 Lymphocytes # 0.7 L Monocytes # 0.9 Eosinophils # 0.3 Basophils # 0.0 Nucleated Red Blood Cells # 0.0 Sodium Level 138 Potassium Level 3.7 Chloride Level 101 Carbon Dioxide Level 26 Anion Gap 11 Blood Urea Nitrogen 13 Creatinine 1.03 Est Glomerular Filtrat Rate mL/min > 60 Glucose Level 67 #L Calcium Level 8.5 Exam/Review of Systems Exam Vitals Vital Signs Date Temp Pulse Resp B/P (MAP) Pulse Ox O2 O2 Flow FiO2 Time Delivery Rate 06/29/18 98.3 85 18 116/71 95 07:42 (86) 06/29/18 Room Air 02:14 06/26/18 2.0 05:10 Intake and Output 06/28/18 06/28/18 06/29/18 1515:00 23:00 07:00 IntakeIntake Total 950 ml 950 ml OutputOutput Total 600 ml 1300 ml 940 ml BalanceBalance -600 ml -350 ml 10 ml Results Results 24hrs Laboratory Tests Test 06/29/18 04:39 White Blood Count 6.5 Red Blood Count 4.40 L Hemoglobin 13.6 L Hematocrit 40.4 L Mean Corpuscular Volume 91.8 Mean Corpuscular Hemoglobin 30.9 Mean Corpuscular Hemoglobin Concent 33.7 Red Cell Distribution Width 12.3 Platelet Count 244 Mean Platelet Volume 10.1 Immature Granulocytes % 0.900 H Neutrophils % 68.7 Lymphocytes % 11.1 L Monocytes % 14.2 H Eosinophils % 4.8 Basophils % 0.3 Nucleated Red Blood Cells % 0.0 Immature Granulocytes # 0.060 H Neutrophils # 4.4 Lymphocytes # 0.7 L Monocytes # 0.9 Eosinophils # 0.3 Basophils # 0.0 Nucleated Red Blood Cells # 0.0 Sodium Level 138 Potassium Level 3.7 Chloride Level 101 Carbon Dioxide Level 26 Anion Gap 11 Blood Urea Nitrogen 13 Creatinine 1.03 Est Glomerular Filtrat Rate mL/min > 60 Glucose Level 67 #L Calcium Level 8.5 Medications Medication Current Medications IV Flush (NS 3 ml) 3 ml PER PROTOCOL IV ; Start 06/25/18 at 13:00 Acetaminophen (Tylenol Tab) 650 mg Q6H PRN PO .PAIN 1-3 OR TEMP; Start 06/25/18 at 13:00 Acetaminophen/ Hydrocodone Bitart ([place] (5/325)) 1 tab Q6H PRN PO .MOD PAIN 4- 6 Last administered on 06/28/18at 09:42; Admin Dose 1 TAB; Start 06/25/18 at 13:00 Docusate Sodium (Colace) 100 mg Q12H PRN PO .CONSTIPATION Last administered on 06/27/18at 10:08; Admin Dose 100 MG; Start 06/25/18 at 13:00 Magnesium Hydroxide (Milk Of Mag) 30 ml DAILY PRN PO .CONSTIPATION; Start 06/25/18 at 13:00 Heparin Sodium (Porcine) (Heparin (5000 Units/1ml)) 5,000 unit Q12 SC ; Start 06/25/18 at 21:00; Status Hold Sodium Chloride 1,000 ml @ 75 mls/hr [id number] IV Last administered on 06/29/18at 05:35; Admin Dose 75 MLS/HR; Start 06/25/18 at 12:41 Lorazepam (Ativan) 0.5 mg Q6H PRN IV ANXIETY; Start 06/25/18 at 13:00 Albuterol/ Ipratropium (Duoneb) 3 ml Q4H RESP THERAPY PRN HHN SHORTNESS OF BREATH; Start 06/25/18 at 13:00 Piperacillin Sod/ Tazobactam Sod 100 ml @ 200 mls/hr Q6 IVPB Last administered on 06/29/18at 05:35; Admin Dose 200 MLS/HR; Start 06/25/18 at 18:00 Hydralazine HCl (Apresoline) 10 mg Q6H PRN IV ELEVATED BLOOD PRESSURE; Start 06/25/18 at 13:00 Nitroglycerin (Nitroglycerin (Sl Tab) 0.4 Mg) 1 tab Q5M PRN SL ANGINA; Start 06/25/18 at 13:00 Albuterol (Ventolin Hfa) 2 puff Q6H PRN INH WHEEZING AND SOB; Start 06/25/18 at 13:00 Oxycodone/ Acetaminophen (Percocet (5/ 325)) 1 tab Q4H PRN PO .MILD PAIN (1-3); Start 06/25/18 at 17:00 Oxycodone/ Acetaminophen (Percocet (5/ 325)) 2 tab Q4H PRN PO .MODERATE PAIN (4-6) Last administered on 06/29/18at 07:44; Admin Dose 2 TAB; Start 06/25/18 at 17:00 Ondansetron HCl (Zofran Inj) 4 mg Q6H PRN IV NAUSEA/VOMITING; Start 06/25/18 at 18:00 Morphine Sulfate (morphine) 2 mg Q4H PRN IV SEVERE PAIN LEVEL 7-10 Last administered on 06/29/18at 09:15; Admin Dose 2 MG; Start 06/28/18 at 15:30 JENI RIOS NP Jun 29, 2018 09:30
--- NOTE | 2018-06-29 12:36 | CONS ---
Assessment/Plan Assessment/Plan Hospital Course (Demo Recall) No acute events patient is awake feels better looks comfortable no fevers overnight WBC 6.5 platelets 244 neutrophils 68.7 BUN 13 creatinine 1.03 Indwelling: DUNIA, Gonzalez catheter Microbiology: Intraoperative culture grew E. coli urine culture and blood cultures remain negative Antimicrobials: Zosyn Assessment: 1. Acute appendicitis, status post laparoscopic appendectomy, postop day #4 2. Abdominal pain 3. Kidney stones 4. Resolved leukocytosis Plan: Patient is doing better, repeat CT abdomen noted, continue antibiotics, follow surgical recommendations, anticipate discharge on oral Levaquin Consultation Date/Type/Reason Admit Date/Time Jun 25, 2018 at 11:39 Initial Consult Date 06/25/18 Type of Consult id Date/Time of Note DATE: 06/29/18 TIME: 12:34 Exam/Review of Systems Exam Vitals Vital Signs Date Temp Pulse Resp B/P (MAP) Pulse Ox O2 O2 Flow FiO2 Time Delivery Rate 06/29/18 98.3 85 18 116/71 95 07:42 (86) 06/29/18 Room Air 02:14 06/26/18 2.0 05:10 Intake and Output 06/28/18 06/28/18 06/29/18 1515:00 23:00 07:00 IntakeIntake Total 950 ml 950 ml OutputOutput Total 600 ml 1300 ml 940 ml BalanceBalance -600 ml -350 ml 10 ml Results Result Diagram: 06/29/18 0439 06/29/18 0439 Results 24hrs Laboratory Tests Test 06/29/18 04:39 White Blood Count 6.5 Red Blood Count 4.40 L Hemoglobin 13.6 L Hematocrit 40.4 L Mean Corpuscular Volume 91.8 Mean Corpuscular Hemoglobin 30.9 Mean Corpuscular Hemoglobin Concent 33.7 Red Cell Distribution Width 12.3 Platelet Count 244 Mean Platelet Volume 10.1 Immature Granulocytes % 0.900 H Neutrophils % 68.7 Lymphocytes % 11.1 L Monocytes % 14.2 H Eosinophils % 4.8 Basophils % 0.3 Nucleated Red Blood Cells % 0.0 Immature Granulocytes # 0.060 H Neutrophils # 4.4 Lymphocytes # 0.7 L Monocytes # 0.9 Eosinophils # 0.3 Basophils # 0.0 Nucleated Red Blood Cells # 0.0 Sodium Level 138 Potassium Level 3.7 Chloride Level 101 Carbon Dioxide Level 26 Anion Gap 11 Blood Urea Nitrogen 13 Creatinine 1.03 Est Glomerular Filtrat Rate mL/min > 60 Glucose Level 67 #L Calcium Level 8.5 Medications Medication Current Medications IV Flush (NS 3 ml) 3 ml PER PROTOCOL IV ; Start 06/25/18 at 13:00 Acetaminophen (Tylenol Tab) 650 mg Q6H PRN PO .PAIN 1-3 OR TEMP; Start 06/25/18 at 13:00 Acetaminophen/ Hydrocodone Bitart ([place] (5/325)) 1 tab Q6H PRN PO .MOD PAIN 4- 6 Last administered on 06/28/18at 09:42; Admin Dose 1 TAB; Start 06/25/18 at 13:00 Docusate Sodium (Colace) 100 mg Q12H PRN PO .CONSTIPATION Last administered on 06/27/18at 10:08; Admin Dose 100 MG; Start 06/25/18 at 13:00 Magnesium Hydroxide (Milk Of Mag) 30 ml DAILY PRN PO .CONSTIPATION; Start 06/25/18 at 13:00 Heparin Sodium (Porcine) (Heparin (5000 Units/1ml)) 5,000 unit Q12 SC ; Start 06/25/18 at 21:00; Status Hold Sodium Chloride 1,000 ml @ 75 mls/hr [id number] IV Last administered on 06/29/18at 05:35; Admin Dose 75 MLS/HR; Start 06/25/18 at 12:41 Lorazepam (Ativan) 0.5 mg Q6H PRN IV ANXIETY; Start 06/25/18 at 13:00 Albuterol/ Ipratropium (Duoneb) 3 ml Q4H RESP THERAPY PRN HHN SHORTNESS OF BREATH; Start 06/25/18 at 13:00 Piperacillin Sod/ Tazobactam Sod 100 ml @ 200 mls/hr Q6 IVPB Last administered on 06/29/18at 12:14; Admin Dose 200 MLS/HR; Start 06/25/18 at 18:00 Hydralazine HCl (Apresoline) 10 mg Q6H PRN IV ELEVATED BLOOD PRESSURE; Start 06/25/18 at 13:00 Nitroglycerin (Nitroglycerin (Sl Tab) 0.4 Mg) 1 tab Q5M PRN SL ANGINA; Start 06/25/18 at 13:00 Albuterol (Ventolin Hfa) 2 puff Q6H PRN INH WHEEZING AND SOB; Start 06/25/18 at 13:00 Oxycodone/ Acetaminophen (Percocet (5/ 325)) 1 tab Q4H PRN PO .MILD PAIN (1-3); Start 06/25/18 at 17:00 Oxycodone/ Acetaminophen (Percocet (5/ 325)) 2 tab Q4H PRN PO .MODERATE PAIN (4-6) Last administered on 06/29/18at 12:14; Admin Dose 2 TAB; Start 06/25/18 at 17:00 Ondansetron HCl (Zofran Inj) 4 mg Q6H PRN IV NAUSEA/VOMITING; Start 06/25/18 at 18:00 Morphine Sulfate (morphine) 2 mg Q4H PRN IV SEVERE PAIN LEVEL 7-10 Last administered on 06/29/18at 09:15; Admin Dose 2 MG; Start 06/28/18 at 15:30 INOCENCIA KLEIN NP Jun 29, 2018 12:36
[2018-06-29 14:00] VITALS: BP 115/71; PULSE 74; RESP 18
[2018-06-29 19:40] VITALS: BP 131/83; PULSE 71; RESP 20
[2018-06-30 02:30] VITALS: BP 125/73; PULSE 60; RESP 20
[2018-06-30] MEDS: PIPER-TAZO 3.375 GM IV (PMX) 100 ML IVPB SCH (05:21)
[2018-06-30] MEDS: OXYCODONE/ACETAMINOPHEN (5/325) TAB PO PRN ×2 (05:52→11:10)
[2018-06-30 07:50] VITALS: BP 119/70; PULSE 69; RESP 18
--- NOTE | 2018-06-30 09:22 | PN ---
Date/Time of Note Date/Time of Note DATE: 06/30/18 TIME: 09:18 Assessment/Plan VTE Prophylaxis Risk score (from Ns)>0 risk: 3 SCD applied (from Ns): Yes Pharmacological prophylaxis: NA/contraindicated Pharm contraindication: low risk/ambulating Lines/Catheters IV C[facility]ter Type (from [facility]): Peripheral IV Urinary Cath still in place: No Assessment/Plan Hospital Course SUBJECTIVE: Patient had bowel movement. He also tolerated full liquid diet. Abdominal pain improved. No fevers or chills OBJECTIVE: Vital signs-see below PHYSICAL EXAM: Constitutional: Well-developed, adequately built, lying in bed comfortably. Psych: nl mood/affect, no complaints Head: atraumatic, normocephalic Eyes: nl conjunctiva, nl sclera ENMT: mucosa pink and moist, nl external ears & nose Neck: non-tender, supple Respiratory: clear to auscultation, normal air movement Cardiovascular: nl pulses, regular rate and rhythm Gastrointestinal: +tender/distended-improved,no bowel sounds appreciated. no rebound. Musculoskeletal/extremities: nl extremities to inspection, motor strength equal bilaterally, no focal deficit. Normal pulses,no cyanosis, no edema. Neurological: Alert oriented 3,nl speech, nl strength Skin: nl turgor ASSESSMENT/PLAN: 52-year-old male with acute appendicitis. 1. Perforated acute appendicitis -Status post laparoscopic appendectomy 06/25/2018. POD #5, doing well.. -Repeat CT with no evidence of abscess/fluid collection/or acute intra-abdominal issues. -Continue antimicrobials (On Zosyn day#6-ID rec Levaquin,I will also add Flagyl), encourage ambulation, incentive spirometry. -Drain management per surgery,with minimal output. 3. Status post sepsis Culprit: Intra-abdominal -Leukocytosis/left shift resolved. -Appendix wound culture grew E. coli -Continue antibiotics. 4. Obesity with BMI 32.3. -Weight reduction advised. -A1c lipid panel within acceptable range. DVT prophylaxis: SCDs. PUD prophylaxis: Start Protonix CODE STATUS: Full code Diet: Tolerating full liquid diet. Advance diet per surgical recommendations. Disposition: Overall patient improving nicely. Drain output is minimized. Abdominal exam benign, having pain but tolerable. At this time, we will change antibiotic to Levaquin and Flagyl. Likely plan for drain removal and discharge today per surgery. Patient was seen in collaboration with . Result Diagram: 06/30/183 06/30/183 Results 24hrs Laboratory Tests Test 06/30/18 04:43 White Blood Count 5.4 Red Blood Count 4.26 L Hemoglobin 13.3 L Hematocrit 38.7 L Mean Corpuscular Volume 90.8 Mean Corpuscular Hemoglobin 31.2 Mean Corpuscular Hemoglobin Concent 34.4 Red Cell Distribution Width 12.2 Platelet Count 245 Mean Platelet Volume 9.8 Immature Granulocytes % 1.300 H Neutrophils % 67.7 Lymphocytes % 11.5 L Monocytes % 12.6 H Eosinophils % 6.7 Basophils % 0.2 Nucleated Red Blood Cells % 0.0 Immature Granulocytes # 0.070 H Neutrophils # 3.7 Lymphocytes # 0.6 L Monocytes # 0.7 Eosinophils # 0.4 Basophils # 0.0 Nucleated Red Blood Cells # 0.0 Sodium Level 141 Potassium Level 3.9 Chloride Level 103 Carbon Dioxide Level 27 Anion Gap 11 Blood Urea Nitrogen 9 Creatinine 0.92 Est Glomerular Filtrat Rate mL/min > 60 Glucose Level 99 Calcium Level 8.7 Exam/Review of Systems Exam Vitals Vital Signs Date Temp Pulse Resp B/P (MAP) Pulse Ox O2 O2 Flow FiO2 Time Delivery Rate 06/30/18 97.9 69 18 119/70 92 Room Air 07:50 (86) Intake and Output 06/29/18 06/29/18 06/30/18 1515:00 23:00 07:00 IntakeIntake Total 100 ml 1150 ml OutputOutput Total 10 ml 1220 ml 10 ml BalanceBalance 90 ml -70 ml -10 ml Results Results 24hrs Laboratory Tests Test 06/30/18 04:43 White Blood Count 5.4 Red Blood Count 4.26 L Hemoglobin 13.3 L Hematocrit 38.7 L Mean Corpuscular Volume 90.8 Mean Corpuscular Hemoglobin 31.2 Mean Corpuscular Hemoglobin Concent 34.4 Red Cell Distribution Width 12.2 Platelet Count 245 Mean Platelet Volume 9.8 Immature Granulocytes % 1.300 H Neutrophils % 67.7 Lymphocytes % 11.5 L Monocytes % 12.6 H Eosinophils % 6.7 Basophils % 0.2 Nucleated Red Blood Cells % 0.0 Immature Granulocytes # 0.070 H Neutrophils # 3.7 Lymphocytes # 0.6 L Monocytes # 0.7 Eosinophils # 0.4 Basophils # 0.0 Nucleated Red Blood Cells # 0.0 Sodium Level 141 Potassium Level 3.9 Chloride Level 103 Carbon Dioxide Level 27 Anion Gap 11 Blood Urea Nitrogen 9 Creatinine 0.92 Est Glomerular Filtrat Rate mL/min > 60 Glucose Level 99 Calcium Level 8.7 Medications Medication Current Medications IV Flush (NS 3 ml) 3 ml PER PROTOCOL IV ; Start 06/25/18 at 13:00 Acetaminophen (Tylenol Tab) 650 mg Q6H PRN PO .PAIN 1-3 OR TEMP; Start 06/25/18 at 13:00 Acetaminophen/ Hydrocodone Bitart ([place] (5/325)) 1 tab Q6H PRN PO .MOD PAIN 4- 6 Last administered on 06/28/18at 09:42; Admin Dose 1 TAB; Start 06/25/18 at 13:00 Docusate Sodium (Colace) 100 mg Q12H PRN PO .CONSTIPATION Last administered on 06/27/18at 10:08; Admin Dose 100 MG; Start 06/25/18 at 13:00 Magnesium Hydroxide (Milk Of Mag) 30 ml DAILY PRN PO .CONSTIPATION; Start 06/25/18 at 13:00 Heparin Sodium (Porcine) (Heparin (5000 Units/1ml)) 5,000 unit Q12 SC ; Start 06/25/18 at 21:00; Status Hold Sodium Chloride 1,000 ml @ 75 mls/hr [id number] IV Last administered on 06/29/18at 18:37; Admin Dose 75 MLS/HR; Start 06/25/18 at 12:41 Lorazepam (Ativan) 0.5 mg Q6H PRN IV ANXIETY; Start 06/25/18 at 13:00 Albuterol/ Ipratropium (Duoneb) 3 ml Q4H RESP THERAPY PRN HHN SHORTNESS OF BREATH; Start 06/25/18 at 13:00 Piperacillin Sod/ Tazobactam Sod 100 ml @ 200 mls/hr Q6 IVPB Last administered on 06/30/18at 05:21; Admin Dose 200 MLS/HR; Start 06/25/18 at 18:00 Hydralazine HCl (Apresoline) 10 mg Q6H PRN IV ELEVATED BLOOD PRESSURE; Start 06/25/18 at 13:00 Nitroglycerin (Nitroglycerin (Sl Tab) 0.4 Mg) 1 tab Q5M PRN SL ANGINA; Start 06/25/18 at 13:00 Albuterol (Ventolin Hfa) 2 puff Q6H PRN INH WHEEZING AND SOB; Start 06/25/18 at 13:00 Oxycodone/ Acetaminophen (Percocet (5/ 325)) 1 tab Q4H PRN PO .MILD PAIN (1-3); Start 06/25/18 at 17:00 Oxycodone/ Acetaminophen (Percocet (5/ 325)) 2 tab Q4H PRN PO .MODERATE PAIN (4-6) Last administered on 06/30/18at 05:52; Admin Dose 2 TAB; Start 06/25/18 at 17:00 Ondansetron HCl (Zofran Inj) 4 mg Q6H PRN IV NAUSEA/VOMITING; Start 06/25/18 at 18:00 Morphine Sulfate (morphine) 2 mg Q4H PRN IV SEVERE PAIN LEVEL 7-10 Last administered on 06/29/18at 18:37; Admin Dose 2 MG; Start 06/28/18 at 15:30 JENI RIOS NP Jun 30, 2018 09:22
[2018-06-30] MEDS ORDERED: LEVOFLOXACIN 500 MG TAB PO SCH (09:30)
[2018-06-30] MEDS ORDERED: metroNIDAZOLE 500 MG TAB PO SCH (09:30)
[2018-06-30] MEDS: SOD CHLORIDE 0.45% 1,000 ML IV SCH (09:32)
--- NOTE | 2018-06-30 09:45 | QN ---
Documentation Comment Postoperative day #5 Afebrile throughout Leukocytosis with left shift resolved Had a bowel movement DUNIA drainage slight serosanguineous Continues to have lower abdominal pain, but improving Plan: DUNIA drain removed From surgical standpoint, patient can be discharged with pain medications and p.o. antibiotics Office follow-up 1 week for staple removal MATTHIAS LALA MD Jun 30, 2018 09:45
--- NOTE | 2018-06-30 11:36 | CONS ---
Assessment/Plan Assessment/Plan Hospital Course (Demo Recall) No acute events, no fevers Microbiology: Intraoperative culture grew E. coli urine culture and blood cultures remain negative Antimicrobials: Levaquin Flagyl Assessment: 1. Acute appendicitis, status post laparoscopic appendectomy, postop day #5 2. Abdominal pain 3. Kidney stones 4. Resolved leukocytosis Plan: Stable, surgical rec-s noted, dc planning on PO abx for 5 more days Consultation Date/Type/Reason Admit Date/Time Jun 25, 2018 at 11:39 Initial Consult Date 06/25/18 Type of Consult id Date/Time of Note DATE: 06/30/18 TIME: 11:34 Exam/Review of Systems Exam Vitals Vital Signs Date Temp Pulse Resp B/P (MAP) Pulse Ox O2 O2 Flow FiO2 Time Delivery Rate 06/30/18 97.9 69 18 119/70 92 Room Air 07:50 (86) Intake and Output 06/29/18 06/29/18 06/30/18 1515:00 23:00 07:00 IntakeIntake Total 100 ml 1150 ml OutputOutput Total 10 ml 1220 ml 10 ml BalanceBalance 90 ml -70 ml -10 ml Results Result Diagram: 06/30/18 0443 06/30/18 0443 Results 24hrs Laboratory Tests Test 06/30/18 04:43 White Blood Count 5.4 Red Blood Count 4.26 L Hemoglobin 13.3 L Hematocrit 38.7 L Mean Corpuscular Volume 90.8 Mean Corpuscular Hemoglobin 31.2 Mean Corpuscular Hemoglobin Concent 34.4 Red Cell Distribution Width 12.2 Platelet Count 245 Mean Platelet Volume 9.8 Immature Granulocytes % 1.300 H Neutrophils % 67.7 Lymphocytes % 11.5 L Monocytes % 12.6 H Eosinophils % 6.7 Basophils % 0.2 Nucleated Red Blood Cells % 0.0 Immature Granulocytes # 0.070 H Neutrophils # 3.7 Lymphocytes # 0.6 L Monocytes # 0.7 Eosinophils # 0.4 Basophils # 0.0 Nucleated Red Blood Cells # 0.0 Sodium Level 141 Potassium Level 3.9 Chloride Level 103 Carbon Dioxide Level 27 Anion Gap 11 Blood Urea Nitrogen 9 Creatinine 0.92 Est Glomerular Filtrat Rate mL/min > 60 Glucose Level 99 Calcium Level 8.7 Medications Medication Current Medications IV Flush (NS 3 ml) 3 ml PER PROTOCOL IV ; Start 06/25/18 at 13:00 Acetaminophen (Tylenol Tab) 650 mg Q6H PRN PO .PAIN 1-3 OR TEMP; Start 06/25/18 at 13:00 Acetaminophen/ Hydrocodone Bitart ([place] (5/325)) 1 tab Q6H PRN PO .MOD PAIN 4- 6 Last administered on 06/28/18 09:42; Admin Dose 1 TAB; Start 06/25/18 at 13:00 Docusate Sodium (Colace) 100 mg Q12H PRN PO .CONSTIPATION Last administered on 06/27/18at 10:08; Admin Dose 100 MG; Start 06/25/18 at 13:00 Magnesium Hydroxide (Milk Of Mag) 30 ml DAILY PRN PO .CONSTIPATION; Start 06/25/18 at 13:00 Heparin Sodium (Porcine) (Heparin (5000 Units/1ml)) 5,000 unit Q12 SC ; Start 06/25/18 at 21:00; Status Hold Sodium Chloride 1,000 ml @ 75 mls/hr [id number] IV Last administered on 06/30/18at 09:32; Admin Dose 75 MLS/HR; Start 06/25/18 at 12:41 Lorazepam (Ativan) 0.5 mg Q6H PRN IV ANXIETY; Start 06/25/18 at 13:00 Albuterol/ Ipratropium (Duoneb) 3 ml Q4H RESP THERAPY PRN HHN SHORTNESS OF BREATH; Start 06/25/18 at 13:00 Hydralazine HCl (Apresoline) 10 mg Q6H PRN IV ELEVATED BLOOD PRESSURE; Start at 13:00 Nitroglycerin (Nitroglycerin (Sl Tab) 0.4 Mg) 1 tab Q5M PRN SL ANGINA; Start 06/25/18 at 13:00 Albuterol (Ventolin Hfa) 2 puff Q6H PRN INH WHEEZING AND SOB; Start 06/25/18 at 13:00 Oxycodone/ Acetaminophen (Percocet (5/ 325)) 1 tab Q4H PRN PO .MILD PAIN (1-3); Start 06/25/18 at 17:00 Oxycodone/ Acetaminophen (Percocet (5/ 325)) 2 tab Q4H PRN PO .MODERATE PAIN (4-6) Last administered on 06/30/18 11:10; Admin Dose 2 TAB; Start 06/25/18 at 17:00 Ondansetron HCl (Zofran Inj) 4 mg Q6H PRN IV NAUSEA/VOMITING; Start 06/25/18 at 18:00 Morphine Sulfate (morphine) 2 mg Q4H PRN IV SEVERE PAIN LEVEL 7-10 Last administered on 06/29/18 18:37; Admin Dose 2 MG; Start 06/28/18 at 15:30 Levofloxacin (Levaquin) 500 mg DAILY@06 PO Last administered on 06/30/18 11:03; Admin Dose 500 MG; Start 06/30/18 at 09:30 Metronidazole (Flagyl) 500 mg Q8 PO Last administered on 06/30/18 11:03; Admin Dose 500 MG; Start 06/30/18 at 09:30 INOCENCIA KLEIN NP Jun 30, 2018 11:36
--- NOTE | 2018-06-30 11:56 | PDOCDIS ---
Discharge Instructions CONDITION [id number] Patient Condition: [id number] Stable HOME CARE INSTRUCTIONS: [id number] Diet Instructions: [id number] Regular ACTIVITY: [id number] Activity Restrictions: [id number] Slowly Increase Activity Rest between Activity Avoid heavy lifting [id number] Bathing Restrictions: [id number] Shower FOLLOW UP/APPOINTMENTS Follow-up Plan Follow up with in 1 week [id number] [id number] Office Follow up with primary care physician in 1week Post operative Instructions *Do not lift anything more than 25 pounds for 6 to 8 weeks *Do not swim or take hot tub bath for 2weeks *Remove dressing and May shower-Use mild soap around site and pat dry *If you notice any oozing, bleeding or other drainage or having fever or chills from site please contact Surgeon's office-If unable to get office, you may go to nearest emergency room JENI RIOS NP Jun 30, 2018 11:56
[2018-06-30] MEDS ORDERED: LEVO500T48 PO (11:58)
[2018-06-30] MEDS ORDERED: HYDR-4012 PO (11:58)
[2018-06-30] MEDS ORDERED: DOCU-144 PO (11:58)
[2018-06-30] MEDS ORDERED: METR500T PO (11:58)
--- NOTE | 2018-06-30 12:12 | DS ---
Date/Time of Note Date/Time of Note DATE: 06/30/18 TIME: 12:10 Discharge Summary Admission/Discharge Info Admit Date/Time Jun 25, 2018 at 11:39 Discharge Date/Time Discharge Diagnosis 1. Perforated acute appendicitis.Status post laparoscopic appendectomy 019. POD #5, doing well.. 3. Status post sepsis 4. Obesity with BMI 32.3. Patient Condition: Stable Consults , ID Dr. Crespo, surgery Procedures 06/28/2018. CT abdomen and pelvis with IV contrast. IMPRESSION: 1. Status post laparoscopic appendectomy with postsurgical changes in the right lower quadrant including peritoneal stranding and trace fluid at the surgical site. No johnny abscess or extraluminal air is seen. There is a right lower quadrant drainage catheter in place. 2. Increased wall thickening or inflammation at the tip of the cecum possibly related to recent surgery. 3. Bibasilar discoid atelectasis. 4. Hepatomegaly with steatosis. 5. Small fat-containing umbilical and left inguinal hernias. 06/25/2018. CT abdomen and pelvis. IMPRESSION: 1. Acute appendicitis as described above without free air abscess. 2. Bilateral nonobstructing small renal calcified calculi more numerous on the left. 3. No obstructive uropathy bilaterally. 4. Anterior mid left renal 1.7 cm cyst. 5. Umbilical and left inguinal fat-containing hernias without herniated bowel or strangulation. 06/25/2018. Operation/Procedure Performed 1. Laparoscopic appendectomy 2. Placement of drain Postoperative Diagnosis Acute appendicitis with perforation and localized peritonitis Addendum: Dr. Amin that was telephoned of these results on 06/25/2018 and 1110 hours. Hospital Course 52-year-old obese male with no significant past medical history, here with abdominal pain, found to have acute perforated appendicitis. Patient underwent laparoscopic appendectomy on 06/25/2018. Postoperative course was notable for pain and abdominal distention which led to further imaging studies with a contrast CT. There was no evidence of abscess/fluid collection or any acute intra-abdominal issues in the CT, and the CT was consistent with post operative changes. He was continued on IV antimicrobials. There was no fevers. Patient's leukocytosis with left shift resolved. He was then started on a diet which he was able to tolerate. Patient was counseled on weight reduction for underlying obesity. His A1c and lipid panel was within acceptable range. DUNIA drain ceased and was removed on 06/30/2018 by the surgeon. He was then surgically cleared for outpatient follow-up. She was being followed by DELORIS lopez who recommended Levaquin on discharge. Due to the nature of ruptured appendicitis, from a medicine standpoint, I also recommended Flagyl for additional anaerobic coverage. Patient is feeling back to his baseline, he still had some abdominal pain which was tolerable. He was given pain medication prescriptions as well. Approximately 60 m spent in coordinating the discharge on this patient. Patient was seen in [facility] Docusate Sodium* (Colace*) 100 Mg Capsule, 100 MG PO BID, #60 CAP Prov:RIOSJENI V. PLASTIC SURGERY SPECIALIST 06/30/18 Metronidazole* (Flagyl*) 500 Mg Tablet, 500 MG PO Q8 for 7 Days, #21 TAB Prov:RIOSJENI V. PLASTIC SURGERY SPECIALIST 06/30/18 Levofloxacin* (Levaquin*) 500 Mg Tablet, 500 MG PO DAILY@06 for 7 Days, #7 TAB Prov:JENI RIOS V. PLASTIC SURGERY SPECIALIST 06/30/18 Cyclobenzaprine Hcl* (Cyclobenzaprine Hcl*) 10 Mg Tablet, 10 MG PO QHS, #7 TAB Prov:OSKAR NATHANC 11/30/17 Prednisone* (Prednisone*) 20 Mg Tab, 40 MG PO DAILY for 4 Days, TAB Prov:OSKAR NATHANC 11/30/17 Naproxen* (Naprosyn*) 500 Mg Tablet, 500 MG PO BID PRN for PAIN AND/OR INFLAMMATION, #30 TAB Prov:OSKAR NATHANC 11/30/17 Ipratropium [place] (Ipratropium [place]) 15 Ml [place], 15 ML NS TID for 7 Days, SPRAY Prov:JOSEFINA,TERA 04/19/17 Ibuprofen* (Motrin*) 600 Mg Tab, 600 MG PO Q6, #30 TAB Prov:JOSEFINA,TERA 04/19/17 Acetaminophen* (Tylophen*) 500 Mg Capsule, 2 CAP PO Q8H PRN for PAIN AND OR ELEVATED TEMP, #20 CAP Prov:JOSEFINA,TERA 04/19/17 Inhaler, Assist Devices (E-Z SPACER) 1 Each Spacer, 1 EACH MC, #1 Prov:JOSEFINA,TERA 04/19/17 Albuterol Sulfate* (Ventolin HFA*) 18 Gm Hfa.aer.ad, 2 PUFF INHALATION Q4H, #1 INHALER Prov:JOSEFINA,TERA 04/19/17 Ibuprofen* (Ibuprofen*) 600 Mg Tablet, 600 MG PO Q8 PRN for pain and/or fever, #20 TAB Prov:BELLE PUGH MD 03/16/17 Albuterol Sulfate* (Proair HFA*) 8.5 Gm Hfa.aer.ad, 2 PUFF INH Q6H PRN for WHEEZING AND SOB, #1 INHALER Prov:BELLE PUGH MD 03/16/17 Azithromycin* (Zithromax*) 250 Mg Tablet, 250 MG PO .ZPACK DIRECTED, #6 TAB TAKE 500 MG (2 TABS) THE FIRST DAY THEN 250 MG (1 TAB) DAYS 2-5 Prov:BELLE PUGH MD 03/16/17 Amoxicillin/Potassium Clav (Amox-Clav 875-125 mg Tablet) 875-125 mg Tab, 1 TAB PO BID for 7 Days, #14 TAB Prov:BELLE PUGH MD 03/16/17 Hydrocodone Bit-Acetaminophen* ([place]*) 5-325 Mg Tab, 1 TAB PO Q6 PRN for PAIN, #11 TAB Prov:ENRRIQUE GAMEZ DO 02/11/15 Cyclobenzaprine Hcl* (Cyclobenzaprine Hcl*) 10 Mg Tablet, 10 MG PO TID, #15 TAB Prov:ENRRIQUE GAMEZ DO 02/11/15 Naproxen* (Naprosyn*) 500 Mg Tablet, 500 MG PO BID PRN for PAIN AND/OR INFLAMMATION, #20 TAB Prov:ENRRIQUE GAMEZ DO 02/11/15 Follow-up Plan Follow up with in 1 week [id number] [address] Office Follow up with primary care physician in 1week Post operative Instructions *Do not lift anything more than 25 pounds for 6 to 8 weeks *Do not swim or take hot tub bath for 2weeks *Remove dressing and May shower-Use mild soap around site and pat dry *If you notice any oozing, bleeding or other drainage or having fever or chills from site please contact Surgeon's office-If unable to get office, you may go to nearest emergency room Primary Care Provider Care Physician No Primary Pending Labs Laboratory Tests Test 06/30/18 04:43 White Blood Count 5.4 10^3/ul (4.8-10.8) Red Blood Count 4.26 10^6/ul (4.70-6.10) Hemoglobin 13.3 g/dl (14.0-18.0) Hematocrit 38.7 % (42.0-52.0) Mean Corpuscular Volume 90.8 fl (82.0-101.0) Mean Corpuscular Hemoglobin 31.2 pg (29.0-33.0) Mean Corpuscular Hemoglobin Concent 34.4 g/dl (32.0-37.0) Red Cell Distribution Width 12.2 % (11.5-14.5) Platelet Count 245 10^3/UL (140-415) Mean Platelet Volume 9.8 fl (7.4-10.4) Immature Granulocytes % 1.300 % (0.001-0.429) Neutrophils % 67.7 % (39.0-77.0) Lymphocytes % 11.5 % (15.0-51.0) Monocytes % 12.6 % (0.0-11.0) Eosinophils % 6.7 % (0.0-7.0) Basophils % 0.2 % (0.0-2.0) Nucleated Red Blood Cells % 0.0 /100WBC (0.0-0.0) Immature Granulocytes # 0.070 10^3/ul (0.0-0.031) Neutrophils # 3.7 10^3/ul (1.6-7.5) Lymphocytes # 0.6 10^3/ul (0.8-2.9) Monocytes # 0.7 10^3/ul (0.3-0.9) Eosinophils # 0.4 10^3/ul (0.0-0.5) Basophils # 0.0 10^3/ul (0.0-0.1) Nucleated Red Blood Cells # 0.0 10^3/ul (0.0-0.0) Sodium Level 141 mmol/L (135-144) Potassium Level 3.9 mmol/L (3.5-5.1) Chloride Level 103 mmol/L (97-110) Carbon Dioxide Level 27 mmol/L (21-31) Anion Gap 11 (5-13) Blood Urea Nitrogen 9 mg/dl (7-20) Creatinine 0.92 mg/dl (0.61-1.24) Est Glomerular Filtrat Rate mL/min > 60 mL/min (>60) Glucose Level 99 mg/dl (70-220) Calcium Level 8.7 mg/dl (8.4-10.2) JENI RIOS NP Jun 30, 2018 12:12
== END 2018-06-30 13:45 | disposition home or self-care (01) | DRG 853 ==
LOC: E/R 10:12 → MS1 11:39 → EDBEDREQSVC 13:01
PROVIDERS: ADMIT Hospitalist; ATTEND Hospitalist
PROC: 0DTJ4ZZ Resection of Appendix, Percutaneous Endoscopic Approach (ICD-10-PCS; principal; 2018-06-25 16:00)
DX: A41.9 Sepsis, unspecified organism (principal); K35.32 Acute appendicitis with perforation, localized peritonitis, and gangrene, without abscess; E66.9 Obesity, unspecified; Z68.32 Body mass index [BMI] 32.0-32.9, adult
CPT/HCPCS: 36415; 71045; 74018; 74176; 74177; 80048; 80053; 80061; 81001; 83036; 83605; 83690; 83735; 84100; 84153; 84154; 84439; 84443; 85025; 85610; 85730; 87040; 87070; 87086; 88304; 93005; 96374; 96375; 96376; J1100; J1170; J1644; J1885; J2175; J2270; J2405; J2543; J2710; J3010; J7030; Q9967

== ENCOUNTER 2018-07-11 11:28 | Emergency (ER) | payer MEDICAID ==
[~2018-07-11] VITALS: Ht 170.2 cm; Wt 86.4 kg
[~2018-07-11 11:28] MED LIST changes: -ALBU18HF INHALATION; -AMOX1TAB10 PO; -AZIT250T PO; -CYCL10TA7 PO; +DOCU-144 PO; -HYDR-3498 PO; +HYDR-4012 PO; -IBUP-1542 PO; -IPRA15SP NS; +LEVO500T48 PO; +METR500T PO; -NAPR-985 PO; -PRED20TA PO
[2018-07-11 12:05] VITALS: BP 159/67; PULSE 71; RESP 19; Ht 170.2 cm; Wt 86.4 kg
[2018-07-11] MEDS ORDERED: NEOM28OI2 TP (14:22)
--- NOTE | 2018-07-11 14:24 | ERD ---
ER Documentation Chief Complaint Chief Complaint suture/staple removal HPI 52-year-old male presents for evaluation for wound check. He had his appendix removed approximately 2-1/2 weeks ago. He was seen by his surgeon who removed the arnie and had some tape placed. He is noticed a blister on the wound above his umbilicus. Denies any fevers, redness, discharge. Pain is overall all improving. ROS All systems reviewed and are negative except as per history of present illness. Medications Home Meds Active Scripts Neomycin Husain/Bacitrac Zn/Poly (Triple Antibiotic Ointment) 28 Gm Oint...g., 28 GM TP BID for 7 Days Prov:RUSS DEUTSCH MD 07/11/18 Docusate Sodium* (Colace*) 100 Mg Capsule, 100 MG PO BID, #60 CAP Prov:RIOS,JENI V. ENVIRONMENTAL ANALYST 06/30/18 Hydrocodone/Acetaminophen ([place] 7.5-325 Tablet) 1 Each Tablet, 1 EACH PO Q6 for pain, #20 TAB Prov:RIOS,JENI V. ENVIRONMENTAL ANALYST 06/30/18 Metronidazole* (Flagyl*) 500 Mg Tablet, 500 MG PO Q8 for 7 Days, #21 TAB Prov:RIOS,JENI V. ENVIRONMENTAL ANALYST 06/30/18 Levofloxacin* (Levaquin*) 500 Mg Tablet, 500 MG PO DAILY@06 for 7 Days, #7 TAB Prov:RIOS,JENI V. ENVIRONMENTAL ANALYST 06/30/18 Acetaminophen* (Tylophen*) 500 Mg Capsule, 2 CAP PO Q8H PRN for PAIN AND OR ELEVATED TEMP, #20 CAP Prov:JOSEFINA,TERA 04/19/17 Inhaler, Assist Devices (E-Z SPACER) 1 Each Spacer, 1 EACH MC, #1 Prov:JOSEFINA,TERA 04/19/17 Albuterol Sulfate* (Proair HFA*) 8.5 Gm Hfa.aer.ad, 2 PUFF INH Q6H PRN for WHEEZING AND SOB, #1 INHALER Prov:BELLE PUGH MD 03/16/17 Allergies Allergies: Coded Allergies: No Known Allergy (Unverified , 02/11/15) PMhx/Soc History of Surgery: Yes (PALM SX; LONG AGO.) Anesthesia Reaction: No Hx Neurological Disorder: No Hx Respiratory Disorders: No Hx Cardiac Disorders: No Hx Psychiatric Problems: No Hx Miscellaneous Medical Probl: No Hx Alcohol Use: No Hx Substance Use: No Hx Tobacco Use: No FmHx Family History: No diabetes, No coronary disease, No other Physical Exam Vitals Vital Signs Date Temp Pulse Resp B/P (MAP) Pulse Ox O2 O2 Flow FiO2 Time Delivery Rate 07/11/18 97.7 71 19 159/67 98 12:05 (97) Physical Exam Const: No acute distress Head: Atraumatic Eyes: Normal Conjunctiva ENT: Normal External Ears, Nose and Mouth. Neck: Full range of motion. No meningismus. Resp: Clear to auscultation bilaterally Cardio: Regular rate and rhythm, no murmurs Abd: Soft, non tender, non distended. Normal bowel sounds Skin: No petechiae or rashes. Approximately 0.5 x 1.5 cm blister above the umbilicus. There is serosanguineous fluid. No surrounding erythema, streaking, fluctuance or discharge. Back: No midline or flank tenderness Ext: No cyanosis, or edema Neur: Awake and alert Psych: Normal Mood and Affect Procedures/MDM Patient presents with a blister likely due to tape status post appendectomy 2- 1/2 weeks ago. There is no signs of abdominal pain, sepsis, wound dehiscence, significant signs of infection. The blister was unroofed and dressed with Neosporin and Band-Aid. Patient was discharged with instructions for wound care and return precautions, fevers, redness, new worsening symptoms otherwise allow wound to dry follow-up as directed. Departure Diagnosis: Primary Impression: Blister Condition: Stable Patient Instructions: Blister Additional Instructions: Recheck for redness, fevers,pus, new or worsening symptoms. RUSS DEUTSCH MD Jul 11, 2018 14:24
== END 2018-07-11 15:00 | disposition left against medical advice (07) ==
LOC: FTE 11:28
DX: T81.89XA Other complications of procedures, not elsewhere classified, initial encounter (principal); S30.821A Blister (nonthermal) of abdominal wall, initial encounter; Y73.8 Miscellaneous gastroenterology and urology devices associated with adverse incidents, not elsewhere classified
CPT/HCPCS: 99283

== ENCOUNTER 2019-01-09 20:59 | Emergency (ER) | payer SELFPAY ==
[~2019-01-09] VITALS: Ht 170.2 cm; Wt 80.8 kg
[~2019-01-09 20:59] MED LIST changes: +CEPH-443 PO; +HYDR-4011 PO; +IBUP-1542 PO; +NEOM28OI2 TP
[2019-01-09 21:04] VITALS: Ht 170.2 cm; Wt 80.8 kg
[2019-01-09] MEDS ORDERED: ONDANSETRON 4 MG INJ IV STA (23:35)
[2019-01-09] MEDS ORDERED: SOD CHLORIDE 0.9% 1,000 ML IV STA (23:35)
[2019-01-09] MEDS ORDERED: morphine 4 MG/ML VIAL IV STA (23:35)
[2019-01-09] MEDS ORDERED: KETOROLAC 30 MG INJ IV STA (23:35)
[2019-01-10 03:18] VITALS: BP 120/75; PULSE 74; RESP 16
== END 2019-01-10 03:30 | disposition home or self-care (01) ==
LOC: E/R 20:59
DX: R10.32 Left lower quadrant pain (principal)
CPT/HCPCS: 36415; 74176; 80053; 81001; 83690; 84484; 85025; 93005; 96361; 96374; 96375; 99285; J1885; J2270; J2405; J7030; 81003